=== PATIENT | male | born 1940 | race Caucasian/White ===

== ENCOUNTER 2017-11-20 23:09 | Inpatient (IN) ==
[2017-11-21] MEDS ORDERED: D5% in Water 1,000 ML IVC PRN (04:23)
[2017-11-21] MEDS ORDERED: *HR* Dextrose 50 % in Water (Syg) 50 ML SYRINGE IVP PRN (04:23)
[2017-11-21] MEDS ORDERED: Dextrose Gel 15 GM/37.5 ML TUBE PO PRN ×2 (04:23)
[2017-11-21] MEDS ORDERED: Naloxone 0.4 MG/ML INJ IVP PRN (04:23)
--- NOTE | 2017-11-21 04:38 | Internal Med History&Physical ---
Date of Encounter: 11/21/17 Time of Encounter: 04:31 Internal Medicine - H&P: HPI Chief complaint: weak; confused; UTI Admitted From: Hospital to Hospital Transfer Plans for Post Hospital Care: Home History of present illness: Mr. Banegas is a 77 year old male who presents in transfer from [facility] ER for concerns of sepsis, altered mental status, and acute kidney failure. He presented there earlier today as he was found by his friends to be very weak, confused, disoriented, and unable to care for himself. According to reports, this was a significant change compared to patient's baseline. He was therefore brought to ER for evaluation where he was found to be confused, disoriented, to have UTI, and septic. He was therefore transferred to [facility]. Upon my assessment of the patient when he arrived, he is weak, somewhat confused , and in no acute distress. He does not recall the events earlier where his friends found him. He is oriented 3 now. He denies any chest pain, palpitations, shortness of breath, cough, fevers, vomiting, diarrhea, bowel pain , or dysuria. However, he did have document fevers of [place] and has evidence of UTI. Furthermore, his blood pressure was a little bit on the lower side. Unfortunately, there are no family members present that can confirm any history. Patient is resting in bed comfortably now and denies any complaints. He is a rather poor historian but appears to be alert and oriented 3 now. Patient denies any history of kidney problems in past. He denies any ill contacts lately. He denies any recent hospitalizations. Past Med Surg Social Fam HX - Past Medical History Attestation: Yes The following information was validated with the patient. Source: patient, old records reviewed Medical history: arthritis, diabetes, GERD, thyroid disease Additional medical history: PROSTATE CANCER, [employer] [place] AND HAS BILATERAL HEARING AIDS , Psychiatric history: no psych history - Past Surgical History Surgical History: no surgical history - Social History Smoking Status: Never smoker Smokeless Tobacco Status: No Alcohol use: none Drug use: none Current living situation: Home - Independent Activity Level: Independent ambulation Recent Out of Country Travel Within the Last 8 Weeks: No - Family History Mother History Unknown: Yes Living Status: Father History Unknown: Yes Living Status: Internal Medicine - H&P: Meds Glimepiride [Amaryl] 4 mg PO DAILY 11/20/17 [History] Insulin DETEMIR [Levemir Flextouch] 100 unit SQ DAILY 11/20/17 [History] Pravastatin Sodium [Pravachol] 20 mg PO DAILY 11/20/17 [History] Thyroid,Pork [Thyroid] 30 mg PO DAILY 11/20/17 [History] metFORMIN [Glucophage] 500 mg PO BIDWM 11/20/17 [History] 3 Allergy/AdvReac Type Severity Reaction Status Date / Time No Known Allergies Allergy Verified 11/20/17 21:48 - Constitutional Constitutional: no chills, no fever(s), no night sweats - EENT Eyes: no blurry vision, no change in vision Ears: no ear pain, no tinnitus Nose, mouth and throat: no nasal congestion, no sinus pressure, no sore throat - Cardiovascular Cardiovascular ROS IM: no chest pain, no diaphoresis, no dyspnea, no dyspnea on exertion, no edema, no orthopnea, no paroxysmal nocturnal dyspnea - Respiratory Respiratory: no cough, no dyspnea, no hemoptysis, no chest congestion, no excessive phlegm production, no change in phlegm color - Gastrointestinal Gastrointestinal: no abdominal pain, no diarrhea, no hematemesis, no hematochezia, no melena, no vomiting - Genitourinary Genitourinary ROS male: no dysuria, no flank pain, no hematuria - Musculoskeletal Musculoskeletal ROS IM: no arthralgias, no back pain, no muscle weakness, no myalgias - Integumentary Integumentary IM: no rash, no jaundice - Neurological Neurological ROS: confusion, no convulsions, no dizziness, no focal weakness, no frequent falls, no headache(s), no weakness - Psychiatric Psychiatric: no anxiety, no depression - Endocrine Endocrine IM: no cold intolerance, no heat intolerance, no polydipsia, no polyuria - Allergic/Immunologic Allergic/Immunologic: no GI upset with certain foods - Constitutional Vitals: Temp Pulse Resp BP Pulse Ox 98.2 F 71 17 102/60 98 11/21/17 04:16 11/21/17 04:16 11/21/17 04:16 11/21/17 04:16 11/21/17 04:16 General appearance: Present: cooperative, A&O X 3, pleasant, no acute distress, answers questions appropriately Exam: see below - Head Head exam: Present: atraumatic, normal inspection - Eye Eye exam: Present: EOMI, PERRL. Absent: scleral icterus Pupils: Present: normal accommodation - ENT ENT exam: Present: mucous membranes dry, normal exam, normal oropharynx - Neck Neck exam general surgery: Present: full ROM, supple. Absent: tenderness, nuchal rigidity, thyromegaly - Respiratory Respiratory exam: Present: CTAB. Absent: chest wall tenderness, rales, respiratory distress, rhonchi, wheezes - Cardiovascular Cardiovascular exam: Present: RRR, +S1, +S2. Absent: diastolic murmur, systolic murmur - GI/Abdominal GI/Abdominal exam: Present: normal bowel sounds, soft. Absent: hepatomegaly, mass, splenomegaly, tenderness - Extremities Exam Extremities exam: Present: full ROM, normal capillary refill, warm, radial pulses palpable and symmetrical. Absent: calf tenderness, joint swelling, pedal edema, tenderness - Back Exam Back exam: Absent: CVA tenderness (L), CVA tenderness (R) - Neurological Exam Neurological exam: Present: alert, CN II-XII intact, oriented X3, no focal deficits - Psychiatric Psychiatric exam: Present: normal affect, normal mood - Skin Skin exam: Present: dry, intact, warm Internal Med - H&P Results - Labs Labs: I reviewed the labs from [facility] ER and include the following: WBC 9.5 Hemoglobin 12.6 Hematocrit 36.5 Platelets 104 Segmented neutrophils 68% Bands 30% Lymphocytes 2% Sodium 129 Potassium 4.0 Chloride 95 Carbon dioxide 21 BUN 41 Creatinine 2.46 - EKG Data -: EKG Interpreted by Myself - EKG Data Prior EKG available for review: no EKG comments: 11/21/17 NSR; no acute ST-T changes - Diagnostic Studies Chest x-ray Status: image reviewed by me (negative) - Assessment and plan (1) Sepsis Current Visit: Yes Status: Acute Assessment and plan: 1. Blood and urine cultures obtained at [place]. 2. Suspect urine source. 3. Continue IV Rocephin and monitor clinically as well as follow the cultures. 4. Trend lactate levels and clinical picture. Qualifiers: Sepsis type: sepsis due to unspecified organism Qualified Code(s): A41.9 - Sepsis, unspecified organism (2) Encephalopathy acute Current Visit: Yes Status: Acute Assessment and plan: 1. Likely due to UTI. 2. Patient alert and oriented now. 3. Monitor clinically with assistance from family/friends to corroborate baseline status. (3) Acute kidney failure Current Visit: Yes Status: Acute Assessment and plan: 1. Will hydrate with IVF. 2. Monitor I/O and daily weight. 3. Monitor renal function. 4. Will order renal ultrasound to rule out obstruction. 5. Consult nephrology if renal function does not improve. Qualifiers: Acute renal failure type: unspecified Qualified Code(s): N17.9 - Acute kidney failure, unspecified (4) Type 2 diabetes mellitus Current Visit: Yes Status: Chronic Assessment and plan: 1. Hold oral home meds. 2. Monitor glucose and treat with SSI for now. Qualifiers: Diabetes mellitus ferry terminal agent insulin use: without ferry terminal agent use Diabetes mellitus complication status: without complication Qualified Code(s): E11.9 - Type 2 diabetes mellitus without complications (5) UTI (urinary tract infection) Current Visit: Yes Status: Acute Assessment and plan: 1. Cultures obtained at [place]. 2. Will treat with IV Rocephin and monitor clinically. Qualifiers: Urinary tract infection type: acute cystitis Hematuria presence: without hematuria Qualified Code(s): N30.00 - Acute cystitis without hematuria (6) DVT prophylaxis Current Visit: Yes Status: Acute Assessment and plan: 1. Heparin SQ.
[2017-11-21] MEDS: 0.9 % Sodium Chloride 1,000 ML IVC SCH ×2 (04:46→14:42)
[2017-11-21 04:57] LABS: Basophils % 0.3 %; Eosinophils % 0.1 %; Hematocrit 33.7 % (37.5-50.1); Hemoglobin 11.5 g/dL (12.9-16.9); Immature Granulocytes % 0.5 % (0-4); Lymphocytes # 0.2 K/mcL (0.6-4.6); Mean Corpuscular HGB Conc 34.1 g/dL (31.6-35.5); Mean Corpuscular Hemoglobin 28.3 pg (28.0-33.3); Mean Platelet Volume 10.4 fL (9.4-12.4); Monocytes # 0.3 K/mcL (0.0-1.3); Platelet Count 106 K/mcL (140-400); Red Blood Count 4.06 M/mcL (4.19-5.50); Red Cell Distribution Width 13.2 % (11.5-14.5); Segmented Neutrophils % 94.1 %
[2017-11-21 05:05] LABS: INR 1.3; Prothrombin Time 15.1 Seconds (9.4-12.1)
[2017-11-21 05:07] LABS: Activated Partial Thrombo Time 31.5 Seconds (26.0-36.0)
[2017-11-21 05:21] LABS: Albumin 3.4 g/dL (3.5-5.7); Albumin/Globulin Ratio 1.3 (1.1-2.2); Bilirubin,Total 0.4 mg/dL (0.3-1.0); Calcium 8.4 mg/dL (8.6-10.3); Globulin 2.7 g/dL (2.4-3.5); Magnesium 1.8 mg/dL (1.6-2.6); Potassium 3.7 mEq/L (3.5-5.1); Total Protein 6.1 g/dL (6.4-8.9)
[2017-11-21] MEDS: *HR* Heparin 5,000 UNIT/ML VIAL SQ SCH ×2 (06:19→16:57)
[2017-11-21] MEDS: Insulin LISPRO 300 UNITS/3 ML VIAL SQ SCH ×4 (08:40→22:13)
--- NOTE | 2017-11-21 09:25 | Event Note ---
Date of Encounter: 11/21/17 Time of Encounter: 09:04 Patient seen and examined at bedside. Patient states history physical assessment and plan reviewed and I agree. Patient is a very pleasant 77-year-old male who presents with concerns for sepsis and altered mental status and found to be in acute renal failure with elevated troponin; was found to be febrile tachycardic and tachypnea suspected source is urine per urinalysis. Currently the patient's mental status is much improved is alert and oriented 3 and complains of being weak and tired with decreased appetite. Patient is unable to recall how he ended up on the ground remember someone trying to help him up to the couch and bring him to the emergency department. He states he could not of the neck too long because there is a lot of people available to check on him. Patient's renal function appears to be improving with IV fluids and this troponin is downtrending. Patient denies any specific complaints right now other than the fatigue and tiredness. Constitutional: No acute distress, Alert Psych: AAO x 3 HEENT: NCAT, EOMI Neck: supple, no JVD Cardio: regular rate and rhythm, +s1s2, no murmurs/rubs/gallops, no JVD Resp: clear to ascultation bilaterally, no wheezes/rales/ronchi Abd: soft, non tender/non distended, positive bowel sounds, no gaurding/reboud/ ridgitity Extremities: no clubbing/cyanosis/edema appreciated Neuro: no focal deficits appreciated, no sensory or motor deficits appreciated, cranial nerves II through XII grossly intact, no facial droop or dysarthria Severe sepsis -Suspect urinary source -End organ damage involving renal and cardiac systems -Temperature improved as his heart rate and respiratory rate -Continue IV Rocephin -Cultures appear to have been ordered but are not showing up I will repeat this -Follow urine culture -Continue IV fluid resuscitation -Bandemia of 30% Urinary tract infection -Continue IV Rocephin Elevated troponin -Likely type II and STEMI secondary to increased demand from sepsis -no cp Altered mental status -Likely secondary to sepsis -Appears to be improving the patient is now alert and oriented 3 -Unsure how the patient ended up down on the ground -Order CT scan of head -CPK also ordered -Currently do not suspect a seizure but will keep and differential should mental status worsen Acute renal failure -Likely prerenal from severe sepsis and urinary tract infection -SCr improving -Unsure of baseline but patient reports no history of renal disease -Retroperitoneal ultrasound ordered -Check FeNa and UPC Pseudohyponatremia -Associated with hyperglycemia DMII with Hyperglycemia -Resume patient's insulin regimen and sliding scale insulin coverage -On clear patient's home dose of Lantus will start 10 units daily at bedtime until verified and titrate up accordingly -monitor Accu-Cheks Thrombycotopenia -unclear baseline -possibly related to sepsis -monitor -hep sq okay for now High risk patient for complications and deterioration
[2017-11-21] MEDS: Acetaminophen 325 MG TABLET PO PRN ×2 (12:59→21:57)
[2017-11-21 15:23] LABS: Protein/Creatinine Ratio,Urine 0.87 mg/mg (0.00-0.20); Sodium, Urine 37.7 mEq/L
[2017-11-21] MEDS: Insulin DETEMIR 100 UNIT/ML X5UNITS SQ SCH (21:57)
[2017-11-21] MEDS ORDERED: cefTRIAXone 2,000 MG in Water for inj. (sterile) 20 ML 20 ML IVP SCH (22:00)
[2017-11-21] MEDS ORDERED: 0.9 % Sodium Chloride 500 ML ONE (22:48)
[2017-11-21] MEDS ORDERED: *HR* Heparin 5,000 UNIT/ML VIAL IVP PRN (22:50)
[2017-11-21] MEDS ORDERED: *HR* Heparin 5,000 UNIT/ML VIAL IVP ONE (22:50)
--- NOTE | 2017-11-21 22:54 | Event Note ---
Date of Encounter: 11/21/17 Time of Encounter: 22:53 Pt was found tachycardia with HR 140-160 on tele. EKG Afib with RVR HR 136. Started on Heparin and Cardizem gtt.
[2017-11-21] MEDS: Heparin 25,000 UNIT/500 ML D5W 25,000 UNIT/500 ML BAG IVC SCH (23:08)
[2017-11-21 23:16] LABS: Red Cell Distribution Width 13.1 % (11.5-14.5)
[2017-11-21 23:18] LABS: Hematocrit 33.1 % (37.5-50.1); Hemoglobin 11.3 g/dL (12.9-16.9); Immature Platelets 7.4 % (1.1-6.1); Mean Corpuscular HGB Conc 34.1 g/dL (31.6-35.5); Mean Corpuscular Hemoglobin 27.9 pg (28.0-33.3); Mean Corpuscular Volume 81.7 fL (83.0-100.0); Mean Platelet Volume 10.6 fL (9.4-12.4); Red Blood Count 4.05 M/mcL (4.19-5.50)
[2017-11-21 23:22] LABS: Heparin anti-factor XA UFH 0.07 IU/mL (0.30-0.70)
[2017-11-21 23:23] LABS: Prothrombin Time 11.2 Seconds (9.4-12.1)
[2017-11-22] MEDS: *HR* Heparin 5,000 UNIT/ML VIAL SQ SCH (04:57)
[2017-11-22 05:37] LABS: Eosinophils % 0.5 %; Hemoglobin 12.2 g/dL (12.9-16.9); Immature Granulocytes % 0.7 % (0-4)
[2017-11-22 05:38] LABS: Basophils % 0.5 %; Hematocrit 35.8 % (37.5-50.1); Immature Platelets 7.3 % (1.1-6.1); Lymphocytes # 0.2 K/mcL (0.6-4.6); Lymphocytes % 4.1 %; Mean Corpuscular HGB Conc 34.1 g/dL (31.6-35.5); Mean Corpuscular Volume 82.1 fL (83.0-100.0); Monocytes # 0.3 K/mcL (0.0-1.3); Monocytes % 6.6 %; Neutrophils # 3.9 K/mcL (1.6-8.9); Red Blood Count 4.36 M/mcL (4.19-5.50); Red Cell Distribution Width 13.1 % (11.5-14.5); Segmented Neutrophils % 87.6 %
[2017-11-22 05:41] LABS: Platelet Count 77 K/mcL (140-400)
[2017-11-22 05:56] LABS: Albumin 3.1 g/dL (3.5-5.7); Albumin/Globulin Ratio 1.2 (1.1-2.2); Bilirubin,Total 0.5 mg/dL (0.3-1.0); Calcium 8.5 mg/dL (8.6-10.3); Globulin 2.6 g/dL (2.4-3.5); Magnesium 1.9 mg/dL (1.6-2.6); Phosphorous 2.5 mg/dL (2.7-4.5); Potassium 3.7 mEq/L (3.5-5.1); Total Protein 5.7 g/dL (6.4-8.9)
[2017-11-22 06:25] LABS: Platelet Estimate Decreased (Normal); Toxic Granulation Present (Not Present)
--- NOTE | 2017-11-22 06:38 | Internal Med Progress Note ---
Hospitalist Progress Note - Encounter Date of Encounter: 11/22/17 Time of Encounter: 06:24 - Subjective Interval History: Patient seen and examined at bedside. Overnight the patient developed new onset atrial fibrillation rapid ventricular response. Cardizem drip and heparin drip were started the patient's heart rate is now controlled. Patient states overall he continues to feel them proved and no longer feels confused. Patient does admit to low back pain today and states that his legs feel weak and is having a hard time ambulating. Patient states that he noticed this yesterday but got up to go to the bathroom overnight and needed significant assistance. He states he normally ambulates without issue. Due patient being found on the ground with unknown etiology will obtain CT scan of lumbar spine to evaluate lower extremity weakness and lumbar pain. Patient denies any chest pain, palpitations, shortness of breath, nausea, vomiting, diarrhea. Patient was asymptomatic with his new onset atrial fibrillation overnight. - Exam Vitals: Temp Pulse Resp BP Pulse Ox 97.7 F 83 17 93/58 96 11/22/17 04:29 11/22/17 05:53 11/22/17 04:29 11/22/17 05:53 11/22/17 04:29 Exam: Constitutional: No acute distress, Alert Psych: AAO x 4 HEENT: NCAT, EOMI Neck: supple, no JVD Cardio: RRR, +s1s2, no murmurs/rubs/gallops, no JVD Resp: clear to ascultation bilaterally, no wheezes/rales/ronchi Abd: soft, non tender/non distended, positive bowel sounds, no gaurding/reboud/ ridgitity Extremities: no clubbing/cyanosis/edema appreciated Neuro: Cranial nerves II through XII grossly intact, no facial droop, moves lower extremities symmetrically with no sensory deficits; able to lift lower extremities off the bed but does seem to have decreased motor strength in proximal LE 3/5 bilaterally MSK: no focal tenderness to palpation over lumbar spine Lymph: no cervical/supraclavicular adenopahty apprecitated - Assessment and Plan (1) Severe sepsis Current Visit: Yes Status: Acute Assessment and Plan: -Suspect urinary source -End organ damage involving renal and cardiac systems -Sepsis improving -Continue IV Rocephin -Culture NGTD; will follow -Follow urine culture -Continue IV fluid resuscitation -Bandemia of 30% on admission; wbc down trending (2) New onset a-fib Current Visit: Yes Status: Acute Assessment and Plan: -Patient with new-onset atrial fibrillation overnight with rapid ventricular response -Heparin and Cardizem drip started -Patient has since converted to normal sinus rhythm -CHADSVASC of 3 -continue cardiezem gtt and start po cardizem 30mg q6 then wean gtt -continue hep gtt for now; unsure if good candidate for long-term AC due to recent fall; reports no falls prior to this however -check xarelto pricing -order 2d echocardiogram (3) UTI (urinary tract infection) Current Visit: Yes Status: Acute Assessment and Plan: -Continue Rocephin -Follow cultures (4) Lower extremity weakness Current Visit: Yes Status: Acute Assessment and Plan: -Patient now complaining of bilateral lower extremity weakness that is limiting his mobility -Also admits to low back pain which she states he is not never had before -Patient does have some lower extremity weakness on exam that is symmetrical with no sensory deficit -We will order CT of the lumbar spine to evaluate for any spinal etiology of his weakness -Also consult neurology for evaluation -PT/OT pending CT scan being negative (5) Encephalopathy acute Current Visit: Yes Status: Acute Assessment and Plan: -Likely toxic metabolic encephalopathy secondary to sepsis -Altered mental status is now resolved patient is alert and oriented 4 -However he was found down on the ground by friends and unsure how this occured -Could be syncope versus seizure versus mechanical fall -CT of the brain was negative for any acute process yesterday -Consider MRI and EEG but we will consult neurology for evaluation and recommendations (6) Acute kidney failure Current Visit: Yes Status: Acute Assessment and Plan: -Likely prerenal from severe sepsis and urinary tract infection -SCr improving to 1.48 from 2.46 on admission -Unsure of baseline but patient reports no history of renal disease -Retroperitoneal ultrasound ordered -FeNa consistent with prerenal etiology -CPK elevated but trending down; possible component of rhabdomyolysis as well (7) Type 2 diabetes mellitus Current Visit: Yes Status: Chronic Assessment and Plan: -BG improving -continue levemir with SSI coverage -up titrate as needed -monitor accuchecks (8) Fall Current Visit: Yes Status: Acute Assessment and Plan: -found on ground by friends -unsure how this happened as pt does not recall -CT head negative -Could be secondary to syncope versus seizure versus mechanical fall -Patient now admits to lower extremity weakness as well as lumbar back pain -We will obtain CT of lumbar spine -We will consult neurology for evaluation and recommendations regarding MRI and EEG (9) Elevated troponin Current Visit: Yes Status: Acute Assessment and Plan: -Likely type II and STEMI secondary to increased demand from sepsis -no cp -troponin downtrended (10) Hyponatremia Current Visit: Yes Status: Acute Assessment and Plan: -Hypovolemic hyponatremia with some component of pseudohyponatremia from hyperglycemia -Continue glycemic control and volume resuscitation -A.m. BMP (11) Thrombocytopenia Current Visit: Yes Status: Acute Assessment and Plan: -Presented with platelet count of 104K -downtrended to 77K but seems to have plauteued -unknown baseline -continue to monitor -likely 2/2 sepsis (12) DVT prophylaxis Current Visit: Yes Status: Acute Assessment and Plan: -hep gtt DVT Prophylaxis: -hep gtt - Summary of Assessment and Plan Summary of Assessment and Plan: -Patient seems to be improving from sepsis standpoint -Now complaining of lower extremity weakness with lumbar back pain we will obtain CT of the lumbar spine to evaluate -Due to unknown etiology of how the patient ended up on the ground we will consult neurology for evaluation and need for EEG and MRI and also for evaluation of LE weakness -Continue heparin drip for now and check Xarelto pricing for new onset atrial fibrillation continue to wean Cardizem drip after starting by mouth Cardizem -Reportedly patient was independent and ambulates without issue prior to this event -Patient High risk - Time Spent with Patient Total time spent is greater than 50% in coordination of care (as documented) at patient's floor/unit and/or counseling patient: Greater than 35 minutes Plan of Care Discussed with: patient Internal Medicine: Result - Labs CBC & Chem 7: 11/22/17 04:58 11/22/17 04:58 Labs: Short CBC 11/21/17 11/22/17 Range/Units 22:58 04:58 WBC 5.3 D 4.4 (4.3-11.1) K/mcL Hgb 11.3 L 12.2 L (12.9-16.9) g/dL Hct 33.1 L 35.8 L (37.5-50.1) % Plt Count 77 L 77 L (140-400) K/mcL BMP 11/22/17 04:58 Sodium 131 L Potassium 3.7 Chloride 102 Carbon Dioxide 22 L BUN 30 H Creatinine 1.48 H Glucose 183 H Calcium 8.5 L Liver Function 11/22/17 Range/Units 04:58 Total Bilirubin 0.5 (0.3-1.0) mg/dL AST 102 H (13-39) Units/L ALT 88 H (7-52) Units/L Alkaline Phosphatase 100 (34-104) Units/L Albumin 3.1 L (3.5-5.7) g/dL - ABG Interpretation ABG results: PT/INR, D-dimer PT 11.2 Seconds (9.4-12.1) 11/21/17 22:58 - Impressions Impressions Head CT 11/21/17 09:18 IMPRESSION: No acute intracranial abnormality. Diffuse atrophic changes with findings suggesting chronic microvascular ischemia D/ / Shane Cole MD / Shane Cole MD Interpreting Provider: Shane Cole MD Consult Discharge Plan - Plan Referrals: NONE,PCP [Primary Care Provider] - (3) UTI (urinary tract infection) Qualifiers: Urinary tract infection type: acute cystitis Hematuria presence: without hematuria Qualified Code(s): N30.00 - Acute cystitis without hematuria (4) Lower extremity weakness Qualifiers: Laterality: bilateral Qualified Code(s): R29.898 - Other symptoms and signs involving the musculoskeletal system (6) Acute kidney failure Qualifiers: Acute renal failure type: unspecified Qualified Code(s): N17.9 - Acute kidney failure, unspecified (7) Type 2 diabetes mellitus Qualifiers: Diabetes mellitus long-term insulin use: without salvage determiner use Diabetes mellitus complication status: without complication Qualified Code(s): E11.9 - Type 2 diabetes mellitus without complications (8) Fall Qualifiers: Encounter type: initial encounter Qualified Code(s): W19.XXXA - Unspecified fall, initial encounter
[2017-11-22 07:10] LABS: Thyroid Stimulating Hormone 5.723 mcIU/mL (0.340-5.600)
[2017-11-22] MEDS: 0.9 % Sodium Chloride 1,000 ML IVC SCH ×2 (07:37→17:20)
[2017-11-22] MEDS: Insulin LISPRO 300 UNITS/3 ML VIAL SQ SCH ×4 (08:03→21:57)
[2017-11-22] MEDS: cefTRIAXone 2,000 MG in Water for inj. (sterile) 20 ML 20 ML IVP SCH (09:07)
--- NOTE | 2017-11-22 09:56 | Neurology - Consult Note ---
<Philomena Burt N - Last Filed: 11/22/17 13:41> Date of Encounter: 11/22/17 Time of Encounter: 09:31 Assessment and Plan (1) Lower extremity weakness Current Visit: Yes Status: Acute 77 year old male admitted with AMS, weakness, and RUBIA who was found on the floor at home. At [place] ED diagnosed with UTI and transferred to [facility]. Mental status has improved since admission and patient is receiving IV antibiotics and fluids. During admission he was diagnosed with new onset afib and started on heparin and cardizem drip. Since admission patient is complaining of new onset lower extremity weakness and back pain. He also admits to decreased sensation of the lower extremities bilaterally, acute onset back pain, and reports a 2-3 month history of bowel incontinence. -Patient's new onset lower extremity weakness with associated acute lower back pain, history of bowel incontinence, and lower extremity numbness raise concern for possible spinal etiology for his symptoms. -On exam he has symmetric mild weakness of the lower extremities and reported decreased sensation to light touch. No other focal neurological findings. -It is possible that his weakness may be secondary to his current UTI, however, given his new onset back pain and history of bowel incontinence we will obtain an MRI lumbar spine to evaluate for spinal compression or cauda equina. -Patient denies regular alcohol intake, however we will obtain Vitamin B12 level to evaluate for possible deficiency -Patient has new onset afib as well, given that he was found unresponsive at home and has lower exremity weakness following the event we will obtain MRI head as well. However, an embolic etiology for the patient's symptoms is unlikely as his symptoms are symmetric bilaterally and there are no unilateral focal neurological deficits on exam. Qualifiers: Laterality: bilateral Qualified Code(s): R29.898 - Other symptoms and signs involving the musculoskeletal system (2) Altered mental status Current Visit: No Status: Acute -Likely secondary to toxic metabolic encephalopathy secondary to patient's UTI -Mental status has improved and patient is alert and oriented X 3 today, although can not recall the events surrounding his ED visit and admission -CT brain negative on admission -No seizure activity reported, no known history of seizures -New onset afib discovered during hospitalization -Will obtain MRI head to evaluate for an embolic etiology for patient's acute change in mental status, but suspect that these symptoms are more likely secondary to his current illness. -No concerning findings at this time for seizure activity to warrant an EEG. Qualifiers: Altered mental status type: disorientation Qualified Code(s): R41.0 - Disorientation, unspecified History of Present Illness Chief complaint: Lower extremity weakness, backpain HPI: Mr. Banegas is a 77 year old male who was found on the floor at home confused, weak, and altered. He was transported to [place] ED where he was found to have UTI with sepsis, RUBIA, and altered mental status. He was subsequently transferred to [facility] for further care. His mental status on admission had improved and he was A& OX3, however he complained of new onset lower extremity weakness and back pain. He was started on IV rocephin and IV fluid hydration. Overnight he experienced an elevated heart rate of 140-160 and EKG showed afib with RVR. He was started on heparin and cardizem drip. This morning the patient was seen at bedside. He is alert and awake and denies any confusion, although he can not recall the events surrounding his ED visit and subsequent admission. He does report weakness in his lower extremities. Stating that he can move the lower extremities, however he is unable to support his weight if he tries to walk. Before the current admission the patient was able to ambulate with a cane without difficulty. He states this is acute and has not happened before. He states both legs feel weak equally. He admits to occasional difficulty with balance, but it is mild. He admits to decreased sensation in the legs as well, stating at times they feel "numb". He denies any urinary incontinence, but reports 2-3 month history of bowel incontinence where he complains of postprandial loss of bowels if he can't make it to a bathroom in time. He denies any saddle anesthesia. He denies headaches, confusion, vision changes, hearing changes, changes in speech, facial sensory or motor changes, or any symptoms regarding his upper extremities. He also denies any chest pain, palpitations, current SOB, or any drug, alcohol or tobacco use. 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 , Psychiatric history: no psych history - Past Surgical History Surgical History: no surgical history - Social History Smoking Status: Never smoker Smokeless Tobacco Status: No Alcohol use: none Drug use: none - Family History Mother History Unknown: Yes Living Status: Father History Unknown: Yes Living Status: Medications and Allergies Glimepiride [Amaryl] 4 mg PO DAILY 11/20/17 [History] Insulin DETEMIR [Levemir Flextouch] 15 unit SQ DAILY 11/20/17 [History] Pravastatin Sodium [Pravachol] 20 mg PO DAILY 11/20/17 [History] Thyroid,Pork [Thyroid] 30 mg PO DAILY 11/20/17 [History] metFORMIN [Glucophage] 500 mg PO BIDWM 11/20/17 [History] Metformin HCl [Metformin HCl ER] 1,000 mg PO QPM 11/22/17 [History] Metformin HCl [Metformin HCl ER] 500 mg PO QAM 11/22/17 [History] 3 Allergy/AdvReac Type Severity Reaction Status Date / Time No Known Allergies Allergy Verified 11/20/17 21:48 All Systems: The remainder of the systems were reviewed and are negative - Constitutional Constitutional ROS IM: as per HPI Physical Examination - Vital Signs Vital Signs: Initial Vital Signs Temp Pulse Resp BP Pulse Ox 99.1 F 86 17 100/67 100 11/21/17 00:51 11/21/17 00:51 11/21/17 00:51 11/21/17 00:51 11/21/17 00:51 - Exam Exam: Constitutional: Alert and oriented X 3, no acute distress, fluent speech, appropriate thought process Heart: regular rate and rhythm, patient is on diltiazem for new onset afib. no murmurs. Lungs: clear to auscultation bilaterally Abdomen: soft, nontender, positive bowel sounds Neurological: CN: II-XII grossly intact. No focal neurological deficits of the cranial nerves. Upper extremities: sensation intact to light touch. Motor strength is 5/5 bilaterally throughout. No pronator drift. Finger to nose normal. biceps reflex 1+ bilaterally. Lower extremities: mildly diminished sensation to light touch of the lower extremities below the knee on the medial and lateral aspect. Sensation is equal to light touch bilaterally however. Strength is 4/5 bilaterally and symmetric, patient is able to elevate leg off bed for greater than 5 seconds, but is only able to move leg against some resistance, but not full resistance. Heel to rice normal. Patellar reflexes are 1+ bilaterally, unable to elicit achilles reflex. Results - Laboratory Findings CBC and BMP: 11/22/17 04:58 11/22/17 04:58 Abnormal lab findings: Abnormal lab results Hgb 12.2 g/dL (12.9-16.9) L 11/22/17 04:58 Hct 35.8 % (37.5-50.1) L 11/22/17 04:58 MCV 82.1 fL (83.0-100.0) L 11/22/17 04:58 Plt Count 77 K/mcL (140-400) L 11/22/17 04:58 Lymphocytes # 0.2 K/mcL (0.6-4.6) L 11/22/17 04:58 Toxic Granulation Present (Not Present) A 11/22/17 04:58 Platelet Estimate Decreased (Normal) L 11/22/17 04:58 Immature Plt Fraction 7.3 % (1.1-6.1) H 11/22/17 04:58 Heparin Anti-Xa, Unfract 0.08 IU/mL (0.30-0.70) L 11/22/17 04:58 Sodium 131 mEq/L (136-145) L 11/22/17 04:58 Carbon Dioxide 22 mEq/L (23-29) L 11/22/17 04:58 BUN 30 mg/dL (8-23) H 11/22/17 04:58 Creatinine 1.48 mg/dL (0.70-1.30) H 11/22/17 04:58 Est GFR ( Amer) 56 (> 60) L 11/22/17 04:58 Est GFR (Non-Af Amer) 46 (> 60) L 11/22/17 04:58 Glucose 183 mg/dL (70-105) H 11/22/17 04:58 POC Glucose 165 mg/dL (70-99) H 11/21/17 20:21 Calcium 8.5 mg/dL (8.6-10.3) L 11/22/17 04:58 Phosphorus 2.5 mg/dL (2.7-4.5) L 11/22/17 04:58 AST 102 Units/L (13-39) H 11/22/17 04:58 ALT 88 Units/L (7-52) H 11/22/17 04:58 Creatine Kinase 344 Units/L (30-223) H 11/22/17 04:58 Troponin I 0.05 ng/mL (< 0.04) H* 11/21/17 04:45 Serum Total Protein 5.7 g/dL (6.4-8.9) L 11/22/17 04:58 Albumin 3.1 g/dL (3.5-5.7) L 11/22/17 04:58 TSH 5.723 mcIU/mL (0.340-5.600) H 11/22/17 04:58 Protein/Creatinin Ratio 0.87 mg/mg (0.00-0.20) H 11/21/17 14:45 Urine Total Protein 90 mg/dL (1-14) H 11/21/17 14:45 Consult Discharge Plan - Plan Referrals: NONE,PCP [Primary Care Provider] - <Shane Paze - Last Filed: 11/22/17 15:45> Date of Encounter: 11/22/17 Time of Encounter: 15:35 Assessment and Plan (1) Lower extremity weakness Current Visit: Yes Status: Acute I agree with Dr. Burt's assessment as stated above. I believe that the lower extremity weakness is primarily due to either lumbar radiculopathy, lumbar stenosis, or perhaps mechanical etiologies. I find no evidence to suspect an inflammatory neuropathy such as GBS. MRI scan of the head as well as lumbar spine are yet pending. Further recommendations will be made upon assessment of these results. Qualifiers: Laterality: bilateral Qualified Code(s): R29.898 - Other symptoms and signs involving the musculoskeletal system History of Present Illness HPI: The chart was reviewed, the patient was seen and examined along with the resident. I agree with his assessment as stated above. He denies urinary incontinence, he denies saddle anesthesia, denies pain in the perineum. He has acute back pain. All Systems: The remainder of the systems were reviewed and are negative Review of Systems: The balance of the systems review is negative. Physical Examination - Vital Signs Vital Signs: Initial Vital Signs Temp Pulse Resp BP Pulse Ox 99.1 F 86 17 100/67 100 11/21/17 00:51 11/21/17 00:51 11/21/17 00:51 11/21/17 00:51 11/21/17 00:51 - Exam Exam: The patient was examined independently along with the resident present. I agree with the documentation as stated above. - Neurologic Detailed sensory examination: intact Mental Status Examination: awake, alert, oriented to person, oriented to place, oriented to time, follows commands appropriately, answers questions appropriately, no agnosia, no aphasia Cranial nerve examination: PERRL, EOMI, visual mae intact, corneal reflexes brisk symmetrically, sensory to face intact, mastication intact, no facial asymmetry is present, no dysarthria, hearing is intact symmetrically, soft palate elevates bilaterally upon phonation, gag reflex intact, flexes SCM and trapezius muscles symmetrically with full power, tongue protrudes midline, no atrophy or facial fasiculations present Results - Laboratory Findings CBC and BMP: 11/22/17 04:58 11/22/17 04:58 Abnormal lab findings: Abnormal lab results Hgb 12.2 g/dL (12.9-16.9) L 11/22/17 04:58 Hct 35.8 % (37.5-50.1) L 11/22/17 04:58 MCV 82.1 fL (83.0-100.0) L 11/22/17 04:58 Plt Count 77 K/mcL (140-400) L 11/22/17 04:58 Lymphocytes # 0.2 K/mcL (0.6-4.6) L 11/22/17 04:58 Toxic Granulation Present (Not Present) A 11/22/17 04:58 Platelet Estimate Decreased (Normal) L 11/22/17 04:58 Immature Plt Fraction 7.3 % (1.1-6.1) H 11/22/17 04:58 Heparin Anti-Xa, Unfract 0.27 IU/mL (0.30-0.70) L 11/22/17 12:33 Sodium 131 mEq/L (136-145) L 11/22/17 04:58 Carbon Dioxide 22 mEq/L (23-29) L 11/22/17 04:58 BUN 30 mg/dL (8-23) H 11/22/17 04:58 Creatinine 1.48 mg/dL (0.70-1.30) H 11/22/17 04:58 Est GFR ( Amer) 56 (> 60) L 11/22/17 04:58 Est GFR (Non-Af Amer) 46 (> 60) L 11/22/17 04:58 Glucose 183 mg/dL (70-105) H 11/22/17 04:58 POC Glucose 165 mg/dL (70-99) H 11/21/17 20:21 Calcium 8.5 mg/dL (8.6-10.3) L 11/22/17 04:58 Phosphorus 2.5 mg/dL (2.7-4.5) L 11/22/17 04:58 AST 102 Units/L (13-39) H 11/22/17 04:58 ALT 88 Units/L (7-52) H 11/22/17 04:58 Creatine Kinase 344 Units/L (30-223) H 11/22/17 04:58 Troponin I 0.05 ng/mL (< 0.04) H* 11/21/17 04:45 Serum Total Protein 5.7 g/dL (6.4-8.9) L 11/22/17 04:58 Albumin 3.1 g/dL (3.5-5.7) L 11/22/17 04:58 TSH 5.723 mcIU/mL (0.340-5.600) H 11/22/17 04:58 Protein/Creatinin Ratio 0.87 mg/mg (0.00-0.20) H 11/21/17 14:45 Urine Total Protein 90 mg/dL (1-14) H 11/21/17 14:45
[2017-11-22] MEDS: *HR* Heparin 5,000 UNIT/ML VIAL IVP PRN (14:31)
[2017-11-22] MEDS: Heparin 25,000 UNIT/500 ML D5W 25,000 UNIT/500 ML BAG IVC SCH (18:18)
[2017-11-22] MEDS: Insulin DETEMIR 100 UNIT/ML X5UNITS SQ SCH (21:58)
[2017-11-23 04:40] LABS: Eosinophils % 1.9 %; Red Cell Distribution Width 13.2 % (11.5-14.5)
[2017-11-23 04:42] LABS: Basophils % 0.6 %; Eosinophils # 0.1 K/mcL (0.0-0.6); Hematocrit 32.2 % (37.5-50.1); Hemoglobin 11.1 g/dL (12.9-16.9); Immature Granulocytes % 0.2 % (0-4); Immature Platelets 8.1 % (1.1-6.1); Lymphocytes # 0.3 K/mcL (0.6-4.6); Lymphocytes % 7.2 %; Mean Corpuscular HGB Conc 34.5 g/dL (31.6-35.5); Mean Corpuscular Hemoglobin 28.3 pg (28.0-33.3); Mean Corpuscular Volume 82.1 fL (83.0-100.0); Mean Platelet Volume 11.2 fL (9.4-12.4); Monocytes # 0.4 K/mcL (0.0-1.3); Monocytes % 8.9 %; Neutrophils # 3.8 K/mcL (1.6-8.9); Red Blood Count 3.92 M/mcL (4.19-5.50); Segmented Neutrophils % 81.2 %
[2017-11-23 04:43] LABS: Platelet Count 73 K/mcL (140-400)
[2017-11-23 05:00] LABS: BUN/Creatinine Ratio 19 (6-26); Blood Urea Nitrogen 24 mg/dL (8-23); Calcium 8.2 mg/dL (8.6-10.3); Carbon Dioxide 22 mEq/L (23-29); Chloride 103 mEq/L (98-107); Creatine Kinase 285 Units/L (30-223); Glucose 183 mg/dL (70-105); Magnesium 1.8 mg/dL (1.6-2.6); Osmolality,Calculated 285 (280-300); Phosphorous 2.8 mg/dL (2.7-4.5); Potassium 3.7 mEq/L (3.5-5.1); Sodium 133 mEq/L (136-145); eGFR For Non-African Americans 55 (> 60)
[2017-11-23 05:01] LABS: Bilirubin,Direct 0.1 mg/dL (0.0-0.2); Bilirubin,Total 0.3 mg/dL (0.3-1.0)
[2017-11-23 05:02] LABS: Albumin 2.8 g/dL (3.5-5.7); Albumin/Globulin Ratio 1.1 (1.1-2.2); Bilirubin,Indirect 0.2 mg/dL (0.0-1.2); Globulin 2.6 g/dL (2.4-3.5); Total Protein 5.4 g/dL (6.4-8.9)
[2017-11-23] MEDS: *HR* Heparin 5,000 UNIT/ML VIAL IVP PRN (06:42)
[2017-11-23] MEDS: cefTRIAXone 2,000 MG in Water for inj. (sterile) 20 ML 20 ML IVP SCH (08:47)
[2017-11-23] MEDS: Insulin LISPRO 300 UNITS/3 ML VIAL SQ SCH ×4 (08:48→22:03)
--- NOTE | 2017-11-23 11:12 | Neurology Progress Note ---
<Philomena Burt N - Last Filed: 11/23/17 11:55> Date of Encounter: 11/23/17 Time of Encounter: 11:11 Assessment and Plan (1) Lower extremity weakness Current Visit: Yes Status: Acute -Patient states that his weakness has somewhat improved, and was able to support his weight when he got out of bed earlier -MRI lumbar spine revealed severe right and moderate left neural foraminal narrowing at L5-S1 secondary to disc bulge -The foraminal narrowing may explain the patient's current symptoms and physical exam findings, further work up with an EMG is warranted. This may be done as an outpatient. -Per neurological standpoint patient is okay for discharge with 300mg gabapentin TID and steroid taper -outpatient neurology follow up after discharge Qualifiers: Laterality: bilateral Qualified Code(s): R29.898 - Other symptoms and signs involving the musculoskeletal system (2) Altered mental status Current Visit: No Status: Acute -likely secondary to toxic metabolic encephalopathy secondary to current illness -improved, no confusion currently present -MRI head negative for any acute abnormality Qualifiers: Altered mental status type: disorientation Qualified Code(s): R41.0 - Disorientation, unspecified Subjective Principal diagnosis: lower extremity weakness Interval history: Patient seen and examined at bedside this morning. He states that he feels improved overall. He is not confused and states that his strength feels subjectively improved as he was able to stand out of bed earlier today. Denies any new focal neurological deficit. MRI head did not reveal any acute abnormalities. MRI lumbar spine revealed severe right and moderate left neral foraminal narrowing at L5-S1 secondary to a disc bulge. Objective - Constitutional Vitals: Temp Pulse Resp BP Pulse Ox 99.3 F 71 16 107/61 97 11/23/17 07:09 11/23/17 07:09 11/23/17 07:09 11/23/17 07:09 11/23/17 07:09 Exam: Neurological: CN: II-XII grossly intact. Upper extremities: Sensation intact, can move all extremities Lower extremities: Able to move both lower extremities on command, strength 4/5 bilaterally. - Neurological Exam Sensation intact: Present: intact Mental Status Examination: Present: awake, alert, oriented to person, oriented to place, oriented to time, follows commands appropriately, answers questions appropriately, no agnosia, no aphasia Cranial nerve examination: Present: PERRL, EOMI, visual mae intact, corneal reflexes brisk symmetrically, sensory to face intact, mastication intact, no facial asymmetry is present, no dysarthria, hearing is intact symmetrically, soft palate elevates bilaterally upon phonation, gag reflex intact, flexes SCM and trapezius muscles symmetrically with full power, tongue protrudes midline, no atrophy or facial fasiculations present Results - Laboratory Findings CBC and BMP: 11/23/17 04:20 11/23/17 04:20 Abnormal lab findings: Abnormal lab results RBC 3.92 M/mcL (4.19-5.50) L 11/23/17 04:20 Hgb 11.1 g/dL (12.9-16.9) L 11/23/17 04:20 Hct 32.2 % (37.5-50.1) L 11/23/17 04:20 MCV 82.1 fL (83.0-100.0) L 11/23/17 04:20 Plt Count 73 K/mcL (140-400) L 11/23/17 04:20 Lymphocytes # 0.3 K/mcL (0.6-4.6) L 11/23/17 04:20 Toxic Granulation Present (Not Present) A 11/22/17 04:58 Platelet Estimate Decreased (Normal) L 11/22/17 04:58 Immature Plt Fraction 8.1 % (1.1-6.1) H 11/23/17 04:20 Heparin Anti-Xa, Unfract 0.25 IU/mL (0.30-0.70) L 11/23/17 04:20 Sodium 133 mEq/L (136-145) L 11/23/17 04:20 Carbon Dioxide 22 mEq/L (23-29) L 11/23/17 04:20 BUN 24 mg/dL (8-23) H 11/23/17 04:20 Est GFR (Non-Af Amer) 55 (> 60) L 11/23/17 04:20 Glucose 183 mg/dL (70-105) H 11/23/17 04:20 POC Glucose 193 mg/dL (70-99) H 11/22/17 21:37 Calcium 8.2 mg/dL (8.6-10.3) L 11/23/17 04:20 AST 60 Units/L (13-39) H 11/23/17 04:20 ALT 82 Units/L (7-52) H 11/23/17 04:20 Creatine Kinase 285 Units/L (30-223) H 11/23/17 04:20 Troponin I 0.05 ng/mL (< 0.04) H* 11/21/17 04:45 Serum Total Protein 5.4 g/dL (6.4-8.9) L 11/23/17 04:20 Albumin 2.8 g/dL (3.5-5.7) L 11/23/17 04:20 TSH 5.723 mcIU/mL (0.340-5.600) H 11/22/17 04:58 Protein/Creatinin Ratio 0.87 mg/mg (0.00-0.20) H 11/21/17 14:45 Urine Total Protein 90 mg/dL (1-14) H 11/21/17 14:45 Consult Discharge Plan - Plan Referrals: NONE,PCP [Primary Care Provider] - <Shane Paez - Last Filed: 11/23/17 15:36> Date of Encounter: 11/23/17 Time of Encounter: 15:27 Assessment and Plan (1) Lower extremity weakness Current Visit: Yes Status: Acute As above. I believe that a short stay at an extended care facility would be best for this patient. This is particularly true since he lives home alone. And he remains at risk for falls. At some point I would like to obtain an EMG as an outpatient to further clarify and corroborate clinical exam, MRI findings and EMG study. Vitamin B12 was normal. I would also recommend discharging him on a steroid taper and gabapentin 300 mg 3 times a day as stated above. We will reevaluate him at your request. Qualifiers: Laterality: bilateral Qualified Code(s): R29.898 - Other symptoms and signs involving the musculoskeletal system Subjective Interval history: The chart was reviewed, the patient was seen and examined independently. The case however was discussed with the resident. I agree with his assessment as stated above. The patient does feel overall, improved. He has been able to integrate about the room however he does not feel completely back to baseline. I did review the MRI scans of the lumbar spine as well as the brain. He does have significant changes at the L4-L5, and L5-S1 levels which are very likely contributing to his lower extremity weakness. Although his mental status and weakness are improved, he lives alone I am concerned about him returning home alone. Objective - Constitutional Vitals: Temp Pulse Resp BP Pulse Ox 98.4 F 74 16 118/79 97 11/23/17 11:14 11/23/17 11:14 11/23/17 11:14 11/23/17 11:14 11/23/17 11:14 - Neurological Exam Motor examination - right side: 4/5: hip flexors, tibialis Anterior, quadriceps , toe extension (EHL), plantarflexion, 5/5: deltoids, biceps, triceps, arts and sciences dean Motor examination - left side: 4/5: hip flexors, quadriceps, tibialis Anterior, toe extension (EHL), plantarflexion, 5/5: deltoids, biceps, triceps, arts and sciences dean Cerebellar examination: Present: no dysmetria, performs finger to nose and heel to rice symmetrically without ataxia. Absent: no gait ataxia (Gait is stable with assist.) Results - Laboratory Findings CBC and BMP: 11/23/17 04:20 11/23/17 04:20 Abnormal lab findings: Abnormal lab results RBC 3.92 M/mcL (4.19-5.50) L 11/23/17 04:20 Hgb 11.1 g/dL (12.9-16.9) L 11/23/17 04:20 Hct 32.2 % (37.5-50.1) L 11/23/17 04:20 MCV 82.1 fL (83.0-100.0) L 11/23/17 04:20 Plt Count 73 K/mcL (140-400) L 11/23/17 04:20 Lymphocytes # 0.3 K/mcL (0.6-4.6) L 11/23/17 04:20 Toxic Granulation Present (Not Present) A 11/22/17 04:58 Platelet Estimate Decreased (Normal) L 11/22/17 04:58 Immature Plt Fraction 8.1 % (1.1-6.1) H 11/23/17 04:20 Sodium 133 mEq/L (136-145) L 11/23/17 04:20 Carbon Dioxide 22 mEq/L (23-29) L 11/23/17 04:20 BUN 24 mg/dL (8-23) H 11/23/17 04:20 Est GFR (Non-Af Amer) 55 (> 60) L 11/23/17 04:20 Glucose 183 mg/dL (70-105) H 11/23/17 04:20 POC Glucose 173 mg/dL (70-99) H 11/23/17 11:33 Calcium 8.2 mg/dL (8.6-10.3) L 11/23/17 04:20 AST 60 Units/L (13-39) H 11/23/17 04:20 ALT 82 Units/L (7-52) H 11/23/17 04:20 Creatine Kinase 285 Units/L (30-223) H 11/23/17 04:20 Troponin I 0.05 ng/mL (< 0.04) H* 11/21/17 04:45 Serum Total Protein 5.4 g/dL (6.4-8.9) L 11/23/17 04:20 Albumin 2.8 g/dL (3.5-5.7) L 11/23/17 04:20 TSH 5.723 mcIU/mL (0.340-5.600) H 11/22/17 04:58 Protein/Creatinin Ratio 0.87 mg/mg (0.00-0.20) H 11/21/17 14:45 Urine Total Protein 90 mg/dL (1-14) H 11/21/17 14:45
[2017-11-23] MEDS: Heparin 25,000 UNIT/500 ML D5W 25,000 UNIT/500 ML BAG IVC SCH (11:20)
--- NOTE | 2017-11-23 18:26 | Electrocardiograph Report ---
[place] [id number] Test Date: 2017-11-21 Pat Name: Axel Banegas Department: 109 Room: 2A Gender: M [employer]: : 1940 Requested By: Blue Rodriguez Order Number: [id number] Reading MD: Arnulfo Hall Measurements Intervals [place] Rate: 136 P: MA: 0 QRS: 6 QRSD: 100 T: -6 QT: 304 QTc: 384 Interpretive Statements ATRIAL FIBRILLATION WITH RAPID VENTRICULAR RESPONSE NONSPECIFIC ST & T-WAVE ABNORMALITY Electronically Signed On 11-23-2017 18:24:34 EDT by Arnulfo Hall
--- NOTE | 2017-11-23 20:06 | Internal Med Progress Note ---
Hospitalist Progress Note - Encounter Date of Encounter: 11/23/17 Time of Encounter: 19:00 - Subjective Interval History: SUBJECTIVE: The patient feels better. He has regained most of his strength in lower extremities. He can walk with minimal assistance. He was able to stand up for me without any help. Denies chest pain. Denies difficulty breathing, coughing and wheezing. He has normal bowel movements and urination. He has not felt any dizziness or lightheadedness, as well as palpitation recently. OBJECTIVE: Skin: Free of rash and discoloration. ENMT: Oral/pharyngeal mucosa is normal in appearance. Eyes: Sclera is white. There is no discharge from eyes. Respiratory: Normal breath sounds; no crackles or wheezes. CV: Heart is regular; no gallop or murmur. GI: Abdomen is soft and not tender. There is no palpable mass or visceromegaly. Neuro: There is no focal deficits. See neuro exam by neurology. ASSESSMENT AND PLAN: Urinary tract infection. The encephalopathy observed at admission (as well as sepsis/RUBIA) resolved. We will continue IV Rocephin (or equivalent) per total of 2 weeks. His blood culture is normal on 2 occasions. I am going to repeat his UA tomorrow. Bilateral lower extremity weakness. 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 It is better. See notes from urology. The patient will benefit from outpatient EMG. He will definitely benefit from physical therapy in ECF. Paroxysmal atrial fibrillation. It was relatively short lasting. He is not the best candidate for anticoagulation due to his severe lumbar spine disease/ potential for falls. Additionally, he has chronic thrombocytopenia. I will stop his IV heparin drip. Type 2 diabetes mellitus. He was on Amaryl and metformin as well as Levemir at home. Currently he takes Levemir and when necessary Humalog. Thrombocytopenia. Chronic/stable. DISPOSITION: We will refer him to F. - Exam Vitals: Temp Pulse Resp BP Pulse Ox 97.7 F 77 17 101/69 97 11/23/17 18:53 11/23/17 18:53 11/23/17 18:53 11/23/17 18:53 11/23/17 18:53 Exam: XX - Assessment and Plan (1) UTI (urinary tract infection) Current Visit: Yes Status: Acute (2) Lower extremity weakness Current Visit: Yes Status: Acute (3) PAF (paroxysmal atrial fibrillation) Current Visit: Yes Status: Acute (4) Severe sepsis Current Visit: Yes Status: Resolved (5) Acute kidney failure Current Visit: Yes Status: Resolved (6) Type 2 diabetes mellitus Current Visit: Yes Status: Chronic (7) Thrombocytopenia Current Visit: Yes Status: Chronic - Time Spent with Patient Total time spent is greater than 50% in coordination of care (as documented) at patient's floor/unit and/or counseling patient: 25 - 35 minutes Plan of Care Discussed with: patient (AND SENIOR COURTROOM CLERK..) Internal Medicine: Result - Labs CBC & Chem 7: 11/23/17 04:20 11/23/17 04:20 Labs: Short CBC 11/23/17 Range/Units 04:20 WBC 4.7 (4.3-11.1) K/mcL Hgb 11.1 L (12.9-16.9) g/dL Hct 32.2 L (37.5-50.1) % Plt Count 73 L (140-400) K/mcL Neutrophils # 3.8 (1.6-8.9) K/mcL BMP 11/23/17 04:20 Sodium 133 L Potassium 3.7 Chloride 103 Carbon Dioxide 22 L BUN 24 H Creatinine 1.27 Glucose 183 H Calcium 8.2 L Liver Function 11/23/17 Range/Units 04:20 Total Bilirubin 0.3 (0.3-1.0) mg/dL Direct Bilirubin 0.1 (0.0-0.2) mg/dL AST 60 H (13-39) Units/L ALT 82 H (7-52) Units/L Alkaline Phosphatase 95 (34-104) Units/L Albumin 2.8 L (3.5-5.7) g/dL - ABG Interpretation ABG results: PT/INR, D-dimer PT 11.2 Seconds (9.4-12.1) 11/21/17 22:58 - Impressions Impressions Retroperitoneum Ultrasound 11/22/17 23:00 IMPRESSION: Right renal pelviectasis. Correlation for obstructive uropathy is recommended. Enlarged prostate gland. D/ / Catherine Patel Cha, MD / Catherine Patel Cha, MD Interpreting Provider: Catherine Patel Cha, MD Brain MRI 11/23/17 08:25 IMPRESSION: 1. No acute infarct, intracranial hemorrhage, significant mass effect. 2. Mild amount of chronic small vessel ischemic white matter disease and diffuse cerebral volume loss. D/ / Rob De Leon MD / Rob De Leon MD Interpreting Provider: Rob De Leon MD Lumbar Spine MRI 11/23/17 08:25 IMPRESSION: 1. Multilevel degenerative changes of the lumbar spine, as described above. 2. Mild spinal canal stenosis, moderate right and mild left neural foraminal narrowing at L4-5 secondary to a disc bulge, facet arthropathy and thickening of the ligamentum flavum. 3. Mild spinal canal stenosis, moderate left and mild right neural foraminal narrowing at L3-4, as described above. 4. Severe right and moderate left neural foraminal narrowing at L5-S1 secondary to a disc bulge, posterior osteophyte formation and facet arthropathy. D/ / 11/23/2017 11:34:20 Doc Anguiano MD / diana Interpreting Provider: Doc Anguaino MD Consult Discharge Plan - Plan Referrals: NONE,PCP [Primary Care Provider] - (1) UTI (urinary tract infection) Qualifiers: Urinary tract infection type: acute cystitis Hematuria presence: without hematuria Qualified Code(s): N30.00 - Acute cystitis without hematuria (2) Lower extremity weakness Qualifiers: Laterality: bilateral Qualified Code(s): R29.898 - Other symptoms and signs involving the musculoskeletal system (5) Acute kidney failure Qualifiers: Acute renal failure type: unspecified Qualified Code(s): N17.9 - Acute kidney failure, unspecified (6) Type 2 diabetes mellitus Qualifiers: Diabetes mellitus intermediate insulin use: without intermediate use Diabetes mellitus complication status: without complication Qualified Code(s): E11.9 - Type 2 diabetes mellitus without complications
[2017-11-23] MEDS: Insulin DETEMIR 100 UNIT/ML X5UNITS SQ SCH (22:09)
[2017-11-24] MEDS: Insulin LISPRO 300 UNITS/3 ML VIAL SQ SCH ×4 (08:45→21:17)
[2017-11-24] MEDS: cefTRIAXone 2,000 MG in Water for inj. (sterile) 20 ML 20 ML IVP SCH (08:47)
[2017-11-24] MEDS: Thyroid (Amour) 30 MG TABLET PO SCH (08:47)
--- NOTE | 2017-11-24 16:11 | Internal Med Progress Note ---
Hospitalist Progress Note - Encounter Date of Encounter: 11/24/17 Time of Encounter: 16:08 - Subjective Interval History: SUBJECTIVE: The patient continues to have mild weakness in his lower extremities. He does walking with assistance/walker. He denies urinary symptoms. Denies chest pain and difficulty breathing. Denies dizziness/lightheadedness and palpitation. OBJECTIVE: Skin: Free of rash and discoloration. ENMT: Oral/pharyngeal mucosa is normal in appearance. Eyes: Sclera is white. There is no discharge from eyes. Respiratory: Normal breath sounds; no crackles or wheezes. CV: Heart is regular; no gallop or murmur. GI: Abdomen is soft and not tender. There is no palpable mass or visceromegaly. Neuro: There is no focal deficits. See neuro exam by neurology. ASSESSMENT AND PLAN: Urinary tract infection. The encephalopathy observed at admission (as well as sepsis/RUBIA) resolved. We will continue IV Rocephin (or equivalent) per total of 2 weeks. His blood culture is normal on 2 occasions. I am repeating his UA today. Bilateral lower extremity weakness. 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 Getting better. See notes from neurology. The patient will benefit from outpatient EMG. He will definitely benefit from physical therapy in ECF. Paroxysmal atrial fibrillation. It was relatively short lasting. He is not the best candidate for anticoagulation due to his severe lumbar spine disease/ potential for falls. Additionally, he has chronic thrombocytopenia. I stopped his IV heparin drip. Type 2 diabetes mellitus. He was on Amaryl and metformin as well as Levemir at home. Currently, he takes Levemir and when necessary Humalog. Thrombocytopenia. Chronic/stable. DISPOSITION: We are hoping to get an ECF bed tomorrow. - Exam Vitals: Temp Pulse Resp BP Pulse Ox 99.0 F 75 16 129/77 95 11/24/17 10:20 11/24/17 10:20 11/24/17 10:20 11/24/17 10:20 11/24/17 10:20 Exam: xx - Assessment and Plan (1) UTI (urinary tract infection) Current Visit: Yes Status: Acute (2) Lower extremity weakness Current Visit: Yes Status: Acute (3) PAF (paroxysmal atrial fibrillation) Current Visit: Yes Status: Acute (4) Severe sepsis Current Visit: Yes Status: Resolved (5) Acute kidney failure Current Visit: Yes Status: Resolved (6) Type 2 diabetes mellitus Current Visit: Yes Status: Chronic (7) Thrombocytopenia Current Visit: Yes Status: Chronic - Time Spent with Patient Total time spent is greater than 50% in coordination of care (as documented) at patient's floor/unit and/or counseling patient: 25 - 35 minutes Plan of Care Discussed with: patient (and case management social worker..) Internal Medicine: Result - Labs CBC & Chem 7: 11/23/17 04:20 11/23/17 04:20 - ABG Interpretation ABG results: PT/INR, D-dimer PT 11.2 Seconds (9.4-12.1) 11/21/17 22:58 Consult Discharge Plan - Plan Referrals: NONE,PCP [Primary Care Provider] - (1) UTI (urinary tract infection) Qualifiers: Urinary tract infection type: acute cystitis Hematuria presence: without hematuria Qualified Code(s): N30.00 - Acute cystitis without hematuria (2) Lower extremity weakness Qualifiers: Laterality: bilateral Qualified Code(s): R29.898 - Other symptoms and signs involving the musculoskeletal system (5) Acute kidney failure Qualifiers: Acute renal failure type: unspecified Qualified Code(s): N17.9 - Acute kidney failure, unspecified (6) Type 2 diabetes mellitus Qualifiers: Diabetes mellitus medical terminologist insulin use: without medical terminologist use Diabetes mellitus complication status: without complication Qualified Code(s): E11.9 - Type 2 diabetes mellitus without complications
[2017-11-24] MEDS: Insulin DETEMIR 100 UNIT/ML X5UNITS SQ SCH (21:16)
[2017-11-25 00:32] LABS: Bilirubin,Urine Negative (Negative); Blood,Urine Negative (Negative); Clarity,Urine Clear (Clear); Color,Urine Yellow (Yellow); Glucose,Urine (UA) 500 mg/dL (Normal); Ketones,Urine Negative (Negative); Leukocyte Esterase,Urine Negative (Negative); Nitrite,Urine Negative (Negative); PH,Urine 5.5 pH Units (5.0-8.0); Protein,Urine Trace mg/dL (Neg-Trace); Specific Gravity,Urine 1.023 (1.010-1.025); Urobilinogen,Urine Normal (Normal)
[2017-11-25 00:37] LABS: Bacteria,Urine None Seen per hpf (None-Few); Hyaline Casts,Urine None Seen per lpf (None-Few); Squamous Epithelial Cell,Urine None Seen per lpf (None-Few); WBC,Urine 0-3 per hpf (0-3)
[2017-11-25 07:26] LABS: Thyroglobulin Antibody <0.9 IU/mL (0.0-4.0)
[2017-11-25] MEDS: cefTRIAXone 2,000 MG in Water for inj. (sterile) 20 ML 20 ML IVP SCH (08:37)
[2017-11-25] MEDS: Thyroid (Amour) 30 MG TABLET PO SCH (08:37)
[2017-11-25] MEDS: Insulin LISPRO 300 UNITS/3 ML VIAL SQ SCH ×3 (08:39→17:21)
[2017-11-25 11:43] VITALS: BP 106/61
--- NOTE | 2017-11-25 16:04 | Discharge Summary ---
Orders not resulted at time of discharge: Pending orders 11/21/17 09:24 Culture,Blood [BC] Routine Date of Encounter: 11/25/17 Time of Encounter: 15:53 - Discharge Diagnosis (1) UTI (urinary tract infection) Priority: Primary Status: Acute Qualifiers: Urinary tract infection type: acute cystitis Hematuria presence: without hematuria Qualified Code(s): N30.00 - Acute cystitis without hematuria (2) Radiculopathy of lumbar region Priority: Primary Status: Acute (3) Lower extremity weakness Priority: Primary Status: Acute Qualifiers: Laterality: bilateral Qualified Code(s): R29.898 - Other symptoms and signs involving the musculoskeletal system (4) PAF (paroxysmal atrial fibrillation) Priority: Secondary Status: Acute (5) Severe sepsis Priority: Primary Status: Resolved (6) Acute kidney failure Priority: Primary Status: Resolved Qualifiers: Acute renal failure type: unspecified Qualified Code(s): N17.9 - Acute kidney failure, unspecified (7) Type 2 diabetes mellitus Priority: Secondary Status: Chronic Qualifiers: Diabetes mellitus truck terminal manager insulin use: without jail use Diabetes mellitus complication status: without complication Qualified Code(s): E11.9 - Type 2 diabetes mellitus without complications (8) Thrombocytopenia Priority: Secondary Status: Chronic Hospital course: HOSPITAL COURSE: The patient is a 77-year-old male. He was admitted to the hospital shortly after developing, confusion. We found him to have urinary tract infection with sepsis and acute kidney injury. We offered him IV fluids and IV Rocephin. Blood cultures have been obtained. They are not growing any organisms. One can see that this patient has underlying type 2 diabetes mellitus; we treated it with diabetic diet and insulin Levemir/when necessary Humalog. He has also underlying chronic thrombocytopenia. We got this patient significantly better. We started talking about his discharge home, when he suddenly developed weakness in his lower extremities; he experienced a fall. Neurology consult has been obtained. The patient underwent MRI examination of lumbar spine. He does have severe right and moderate left neural foraminal narrowing at L5-S1 secondary to a disc bulge, posterior osteophyte formation and facet arthropathy. We offered him physical therapy. He is doing progressively better. He is able to walk with a walker/assistance from physical therapy. We decided to continue physical therapy at a intermediate facility. The patient had a short lasting episodes of atrial fibrillation during this hospitalization. It was treated with IV Cardizem. Currently, he is on Cardizem CD at 120 mg by mouth daily. He is not a candidate for chronic anticoagulation with Coumadin or similar medication due to his severe disease of lumbar spine. He is a high risk for falls. CONDITION AT DISCHARGE: The patient feels good. Denies chest pain and difficulty breathing. Denies back pain. He is able to ambulate with a walker/assistance from physical therapy. Skin: Free of rash and discoloration. Respiratory: Normal breath sounds with no crackles and wheezes bilaterally. CV: Heart is regular with no gallop or murmur. GI: Abdomen is flat and soft with no palpable mass or visceromegaly. Neuro exam: There is no focal deficits. SEE DISCHARGE ORDERS/MEDICATIONS.. Discharge discussed with: patient, social work - Time Spent with Patient Total time spent providing and/or coordinating discharge services: Greater than 30 minutes (40 minutes..) - Discharge Medications Prescriptions: Diltiazem CD (24hr) [Cardizem CD] 120 mg PO DAILY #30 cap.er.24h Metformin HCl [Metformin HCl ER] 1,000 mg PO BID #60 [id number] Home Medications: Glimepiride [Amaryl] 4 mg PO DAILY 11/20/17 [History] Insulin DETEMIR [Levemir Flextouch] 15 unit SQ DAILY 11/20/17 [History] Pravastatin Sodium [Pravachol] 20 mg PO DAILY 11/20/17 [History] Thyroid,Pork [Thyroid] 30 mg PO DAILY 11/20/17 [History] Acetaminophen [Tylenol] 650 mg PO Q6HR PRN tablet 11/25/17 [Rx] Diltiazem CD (24hr) [Cardizem CD] 120 mg PO DAILY #30 cap.er.24h 11/25/17 [Rx] Metformin HCl [Metformin HCl ER] 1,000 mg PO BID #60 [id number] 11/25/17 [Rx] Allergies/Adverse Reactions: 3 Allergy/AdvReac Type Severity Reaction Status Date / Time No Known Allergies Allergy Verified 11/20/17 21:48 Date of admission: 11/21/17 04:40 Primary care physician: PCP NONE Consults: 11/22/17 06:39 Consult to Neurology [CONS] Routine Consulting Provider: Neurology [facility] Reason for Consult: found down on ground; unknown etiology, elevated cpk; eval for siezure; also with lower extremity weakness Call Completed: No 11/22/17 06:44 Consult to Physical Therapy [CONS] Routine Comment: Evaluate, develop and implement POC Reason for Consult: weakness Does patient have active BEDREST order?: No Is patient medically & hemodynamically stable?: Yes OT [Consult to Occupational Therapy] [CONS] Routine Comment: Evaluate, develop and implement POC Reason for Consult: weakness Does patient have active BEDREST order?: No Is patient medically & hemodynamically stable?: Yes 11/22/17 15:43 Consult to Elementary [employer] Teacher [CONS] Routine Reason for SW Consult: needs ecf Discharging clinician: Jason Delacruz Anticipated date of discharge: 11/25/17 - Constitutional Vitals: Temp Pulse Resp BP Pulse Ox 97.6 F 72 18 106/61 99 11/25/17 11:42 11/25/17 11:42 11/25/17 11:42 11/25/17 11:42 11/25/17 11:42 General appearance: Present: cooperative, A&O X 3, pleasant, no acute distress, answers questions appropriately Exam: xx - Patient Status Disposition: Transfer SNF Condition: Fair Overall status at discharge: patient is progressing back to baseline - Discharge Instructions Follow Up With: NONE,PCP [Primary Care Provider] - Additional Instructions: FINGERSTICKS FOR GLUCOSE -- ROUTINE (FOR NON-INSULIN DEPENDENT T2DM).. - Diet and Activity Activity: ambulate only with your walker, as per physical therapy Diet: diabetic diet - VTE Reasons for not Prescribing Prophylaxis: Treatment not Indicated - Low risk for VTE Deep Vein Thrombosis/Pulmonary Embolism Present on Admission: No
--- NOTE | 2017-11-25 16:13 | Physician Discharge Referral ---
ExtendedCare Referral Info Transfer To: [facility] Provider in Charge: Irais Delacruz MD Institutional Level of Care: Skilled - Diagnosis (1) UTI (urinary tract infection) Priority: Primary Status: Acute (2) Radiculopathy of lumbar region Priority: Primary Status: Acute (3) Lower extremity weakness Priority: Primary Status: Acute (4) PAF (paroxysmal atrial fibrillation) Priority: Secondary Status: Chronic (5) Severe sepsis Priority: Primary Status: Resolved (6) Acute kidney failure Priority: Primary Status: Resolved (7) Type 2 diabetes mellitus Priority: Secondary Status: Chronic (8) Thrombocytopenia Priority: Secondary Status: Chronic Prognosis: Fair Aware of Diagnosis: Patient Aware of Prognosis: Patient - Transfer Medications Prescriptions: Diltiazem CD (24hr) [Cardizem CD] 120 mg PO DAILY #30 cap.er.24h Metformin HCl [Metformin HCl ER] 1,000 mg PO BID #60 [id number] Home Medications: Glimepiride [Amaryl] 4 mg PO DAILY 11/20/17 [History] Insulin DETEMIR [Levemir Flextouch] 15 unit SQ DAILY 11/20/17 [History] Pravastatin Sodium [Pravachol] 20 mg PO DAILY 11/20/17 [History] Thyroid,Pork [Thyroid] 30 mg PO DAILY 11/20/17 [History] Acetaminophen [Tylenol] 650 mg PO Q6HR PRN tablet 11/25/17 [Rx] Diltiazem CD (24hr) [Cardizem CD] 120 mg PO DAILY #30 cap.er.24h 11/25/17 [Rx] Metformin HCl [Metformin HCl ER] 1,000 mg PO BID #60 [id number] 11/25/17 [Rx] Allergies/Adverse Reactions: 3 Allergy/AdvReac Type Severity Reaction Status Date / Time No Known Allergies Allergy Verified 11/20/17 21:48 - Respiratory Orders None Smoking Cessation: Smoking cessation has been advised. For more information, call the [place] Tobacco Quit Line at 2-900-WEIZ-NOW. - Mobility Orders Ambulate (WITH A WALKER/ASSISTANCE..) - Rehabiliation Orders Rehab Potential: Fair Rehab Orders: Evaluation for Physical Therapy, Evaluation for Occupational Therapy - Diet Orders No Concentrated Sweets CERTIFICATION: I certify that the transfer of the above named patient to an Extended Care Facility is necessary for the continuing treatment of the diagnosis listed. The above information is true and accurate reflection of patient's current condition. Confidential - Redisclosure prohibited without a patient's written consent.
== END 2017-11-25 17:34 | DRG 871 ==
LOC: 2ANU → SUATTDRO 11-21 04:40
PROVIDERS: ADMIT Family Medicine; ATTEND Internal Medicine

== ENCOUNTER 2017-12-08 01:50 | Inpatient (IN) ==
--- NOTE | 2017-12-08 06:00 | Internal Med History&Physical ---
<Jordan Lorenzo - Last Filed: 12/08/17 08:15> Date of Encounter: 12/08/17 Time of Encounter: 05:58 Internal Medicine - H&P: HPI Chief complaint: Syncope History of present illness: xAel Banegas is a 77 year old male with a PMH of arthritis, DM, GERD, and thyroid disease who presented to [facility] on 12/08/17 for a syncopal episode. Patient is unable to remember the episode, and is unable to give corroborating details. jail night staff is unaware. Patient reports that he feels fine now. During orthostatics, patients blood pressure dropped, and he felt wobbly on his feet. Upon arrival, patients vital signs were as follows: Temperature 98.5, pulse 91, respiratory rate 22, blood pressure 106/72, O2 sat 100. Laboratory analysis was significant for an elevated white count of 11.2 with left shift, hemoglobin 4.8, creatinine 1.71. FOBT was positive. Stool was black. Previous hemoglobin was 10.7 only 10 days ago. EKG was unremarkable. 2 units packed red blood cells have been ordered. Patient seen and examined at bedside; he states that he is feeling well. He currently denies fever, chills, N/V/D, lightheadeness, numbness, tingling,fa tigue, or abdominal pain. No further complaints at this time. Past Med Surg Social Fam HX - Past Medical History Medical history: arthritis, atrial fibrillation, dementia, diabetes, GERD, hyperlipidemia, thyroid disease, syncope Additional medical history: UTI, syncopal episode 12/07/17 Psychiatric history: no psych history - Past Surgical History Surgical History: no surgical history - Social History Smoking Status: Never smoker Smokeless Tobacco Status: No Alcohol use: none Drug use: none - Family History Mother Living Status: Father Living Status: Internal Medicine - H&P: Meds Glimepiride [Amaryl] 4 mg PO DAILY 11/20/17 [History] Insulin DETEMIR [Levemir Flextouch] 15 unit SQ DAILY 11/20/17 [History] Pravastatin Sodium [Pravachol] 20 mg PO DAILY 11/20/17 [History] Thyroid,Pork [Thyroid] 30 mg PO DAILY 11/20/17 [History] Acetaminophen [Tylenol] 650 mg PO Q6HR PRN tablet 11/25/17 [Rx] Diltiazem CD (24hr) [Cardizem CD] 120 mg PO DAILY #30 cap.er.24h 11/25/17 [Rx] Metformin HCl [Metformin HCl ER] 1,000 mg PO BID #60 [id number] 11/25/17 [Rx] Allergy/AdvReac Type Severity Reaction Status Date / Time No Known Allergies Allergy Verified 11/20/17 21:48 All Systems PM: A 10-system review of systems was performed and is negative for pertinent findings except as documented above in the HPI. - Constitutional Constitutional: no chills, no fever(s), no night sweats - EENT Eyes: no change in vision, no discharge, no pain, no photophobia Ears: no ear discharge, no ear pain, no tinnitus Nose, mouth and throat: no dysphagia, no nasal discharge, no neck pain, no sore throat - Cardiovascular Cardiovascular ROS IM: no chest pain, no diaphoresis, no dyspnea, no lightheadedness, no palpitations, no syncope - Respiratory Respiratory: no cough, no dyspnea, no wheezing, no excessive phlegm production - Gastrointestinal Gastrointestinal: melena, no abdominal pain, no diarrhea, no hematemesis, no hematochezia, no nausea, no vomiting - Musculoskeletal Musculoskeletal ROS IM: no numbness, no tingling - Integumentary Integumentary IM: no rash, no unusual bruising - Neurological Neurological ROS: no confusion, no convulsions, no focal weakness, no numbness, no tingling, no tremor(s) - Hematologic/Lymphatic Hematologic/Lymphatic: no easy bruising - Constitutional Vitals: Temp Pulse Resp BP Pulse Ox 98.1 F 81 15 126/66 99 12/08/17 05:07 12/08/17 05:07 12/08/17 05:07 12/08/17 05:07 12/08/17 05:07 Exam: General: No acute distress Head: atraumatic, normocephalic Eye exam: PERRL, EOMI ENT exam: normal oropharynx, mucous membranes dry Neck exam: Supple, trachea midline Cardiovascular: RRR, no murmurs, rubs, or gallops Respiratory exam: CTAB; no wheezes, rales, rhonchi Abdomen: Soft, nontender Extremities: No clubbing or cyanosis Neurological: Present: alert, oriented X3 Psychiatric: Present: normal affect, normal mood Skin: Present: warm, dry Internal Med - H&P Results - Labs CBC & Chem 7: 12/08/17 06:25 12/08/17 06:25 - Assessment and plan (1) GI bleed Current Visit: No Status: Acute Assessment and plan: Patient presented after syncopal episode - Laboratory analysis demonstrated a hemoglobin of 4.8 - Stools were tarry black - FOBT was positive - Patient is status post 2 units transfusion packed red blood cells Plan: - Will keep patient nothing by mouth - Consult GI - Protonix 40 IV BID Qualifiers: Qualified Code(s): K92.2 - Gastrointestinal hemorrhage, unspecified (2) Anemia Current Visit: No Status: Acute Assessment and plan: Likely secondary to GI bleed - Type and screen; Transfuse as necessary - Plan as above Qualifiers: Qualified Code(s): D64.9 - Anemia, unspecified (3) Chronic kidney disease Current Visit: Yes Status: Acute Assessment and plan: - Patient has an elevated creatinine at 1.71; appears to be at baseline Qualifiers: Qualified Code(s): N18.9 - Chronic kidney disease, unspecified - Time Spent With Patient Total time spent is greater than 50% in coordination of care (as documented) at patient's floor/unit and/or counseling patient: 25 - 35 minutes <Dylan Ragsdale - Last Filed: 12/08/17 08:50> Internal Medicine - H&P: HPI History of present illness: Mr. Banegas is a 77 year old male All Systems PM: A 10-system review of systems was performed and is negative for pertinent findings except as documented above in the HPI. - Constitutional Vitals: Temp Pulse Resp BP Pulse Ox 97.5 F L 81 10 107/56 100 12/08/17 08:00 12/08/17 07:52 12/08/17 07:00 12/08/17 07:00 12/08/17 07:00 Internal Med - H&P Results - Labs CBC & Chem 7: 12/08/17 06:25 12/08/17 06:25 Labs: Short CBC 12/08/17 Range/Units 06:25 WBC 7.6 (4.3-11.1) K/mcL Hgb 7.1 L D (12.9-16.9) g/dL Hct 21.5 L (37.5-50.1) % Plt Count 243 (140-400) K/mcL Neutrophils # 5.8 (1.6-8.9) K/mcL BMP 12/08/17 06:25 Sodium 137 Potassium 4.3 Chloride 109 H Carbon Dioxide 22 L BUN 47 H Creatinine 1.47 H Glucose 194 H Calcium 8.5 L Cardiac Enzymes 12/08/17 Range/Units 06:25 Troponin I < 0.03 (< 0.04) ng/mL Liver Function 12/08/17 Range/Units 06:25 Total Bilirubin 0.2 L (0.3-1.0) mg/dL AST 8 L (13-39) Units/L ALT 10 (7-52) Units/L Alkaline Phosphatase 52 (34-104) Units/L Albumin 3.1 L (3.5-5.7) g/dL - Time Spent With Patient Total time spent is greater than 50% in coordination of care (as documented) at patient's floor/unit and/or counseling patient: - Attending Attestation Patient seen and examined. Chart reviewed. Case discussed with resident. Agree with assessment and plan. Patient presenting with syncopal episode and a 2 day history of weakness in the setting of what appears to be upper GI bleed with a hemoglobin of 4.8 and elevated BUN and reports of dark stools. No reports of hematemesis. Patient currently hemodynamically stable after receiving 2 units of packed red blood cells with a rise in hemoglobin from 4.8- 7.1. We will give 1 additional unit. Continue with IV Protonix. Patient will be kept nothing by mouth. GI consult in the morning.
[2017-12-08] MEDS ORDERED: Naloxone 0.4 MG/ML INJ IVP PRN (06:01)
[2017-12-08] MEDS ORDERED: 0.9 % Sodium Chloride 1,000 ML IVC SCH (06:15)
[2017-12-08] MEDS: Pantoprazole 40 MG VIAL IVP SCH ×2 (06:33→18:00)
[2017-12-08 06:34] LABS: Basophils # 0.1 K/mcL (0.0-0.2); Basophils % 1.1 %; Eosinophils % 0.5 %; Hematocrit 21.5 % (37.5-50.1); Hemoglobin 7.1 g/dL (12.9-16.9); Immature Granulocytes % 2.2 % (0-4); Mean Corpuscular Hemoglobin 28.5 pg (28.0-33.3); Mean Corpuscular Volume 86.3 fL (83.0-100.0); Mean Platelet Volume 8.7 fL (9.4-12.4); Monocytes # 0.5 K/mcL (0.0-1.3); Monocytes % 6.7 %; Neutrophils # 5.8 K/mcL (1.6-8.9); Nucleated Red Blood Cells 0.3 /100 WBC (0); Platelet Count 243 K/mcL (140-400); Red Blood Count 2.49 M/mcL (4.19-5.50); Red Cell Distribution Width 14.2 % (11.5-14.5); Segmented Neutrophils % 76.5 %
[2017-12-08 06:42] LABS: INR 1.2; Prothrombin Time 13.5 Seconds (9.4-12.1)
[2017-12-08 06:56] LABS: Troponin I < 0.03 ng/mL (< 0.04)
[2017-12-08 06:57] LABS: Alanine Aminotransferase 10 Units/L (7-52); Albumin 3.1 g/dL (3.5-5.7); Albumin/Globulin Ratio 1.4 (1.1-2.2); Alkaline Phosphatase 52 Units/L (34-104); Aspartate Amino Transferase 8 Units/L (13-39); BUN/Creatinine Ratio 32 (6-26); Bilirubin,Total 0.2 mg/dL (0.3-1.0); Blood Urea Nitrogen 47 mg/dL (8-23); Calcium 8.5 mg/dL (8.6-10.3); Carbon Dioxide 22 mEq/L (23-29); Chloride 109 mEq/L (98-107); Globulin 2.2 g/dL (2.4-3.5); Glucose 194 mg/dL (70-105); Osmolality,Calculated 302 (280-300); Potassium 4.3 mEq/L (3.5-5.1); Sodium 137 mEq/L (136-145); Total Protein 5.3 g/dL (6.4-8.9); eGFR For Non-African Americans 46 (> 60)
--- NOTE | 2017-12-08 09:57 | Gastroenterology Consult Note ---
<TkShane lozano - Last Filed: 12/08/17 10:22> Date of Encounter: 12/08/17 Time of Encounter: 09:54 - Assessment and plan (1) Anemia Current Visit: Yes Status: Acute Assessment and plan: Secondary to acute blood loss, likely due to upper GI bleed. Symptomatic with weakness and syncope. Patient reports melena. Hemoglobin 4.8 on presentation, received 2 units of packed red blood cells, is up to 7.1 this morning, patient has 2 more units of packed red blood cells pending. Baseline hemoglobin appears to be around 11. Discussed with patient, we will proceed with EGD later today. We will keep patient nothing by mouth. Continue Protonix 40 mg IV twice a day. Qualifiers: Anemia type: other cause Other causes of anemia: acute posthemorrhagic Qualified Code(s): D62 - Acute posthemorrhagic anemia (2) GI bleed Current Visit: Yes Status: Acute Assessment and plan: Likely cause of patient's anemia as above. Plan for EGD today. Qualifiers: GI bleed type/associated pathology: unspecified gastrointestinal hemorrhage type Qualified Code(s): K92.2 - Gastrointestinal hemorrhage, unspecified (3) PAF (paroxysmal atrial fibrillation) Current Visit: No Status: Acute Assessment and plan: Currently rate controlled. Had received IV heparin during last admission but anticoagulation was not continued. Currently not on any anticoagulation. - Time Spent With Patient Total time spent is greater than 50% in coordination of care (as documented) at patient's floor/unit and/or counseling patient: GI History of Present Illness - Data of Consult Patient: new to practice Consult date: 12/08/17 Requesting Physician: Marky Yeung MD - Consult Narrative Reason for consult: Anemia, melena History of present illness: Mr. Banegas is a 77 year old male with history of hypothyroidism, type 2 diabetes, atrial fibrillation not on anticoagulation who presents with weakness, syncope, melena. Patient states that over the last week he has been feeling progressively weak and has had trouble getting out of bed. He states he has not had anything like this before. He reports prior to arrival he had an episode where he stood up and passed out. He denies hitting his head. He reports at the long-term they have told him over the last 4 days he has had black stools. He reports his bowel movements have become more frequent. Patient reports being diagnosed with an abnormal heart rhythm on his last admission approximately 3 weeks ago. He reports he was given anticoagulation while in the hospital but this has not been continued as an outpatient. He denies aspirin or NSAID use. He denies any abdominal pain, nausea, vomiting, diarrhea, hematemesis, hematochezia. Colonoscopy: Unknown EGD: Unknown Past Med Surg Social Fam HX - Past Medical History Medical history: arthritis, atrial fibrillation, dementia, diabetes, GERD, hyperlipidemia, thyroid disease, syncope Additional medical history: UTI, syncopal episode 12/07/17 Psychiatric history: no psych history - Past Surgical History Surgical History: no surgical history - Social History Smoking Status: Never smoker Smokeless Tobacco Status: No Alcohol use: none Drug use: none - Family History Father Living Status: Mother Living Status: All systems PM: reviewed and no additional remarkable complaints except as stated - Constitutional Vitals: Temp Pulse Resp BP Pulse Ox 97.5 F L 81 10 107/56 100 12/08/17 08:00 12/08/17 07:52 12/08/17 07:00 12/08/17 07:00 12/08/17 07:00 General appearance: Present: A&O X 3, pleasant, no acute distress, answers questions appropriately - Head Head exam: Present: atraumatic, normal inspection, normocephalic - ENT ENT exam: Present: mucous membranes moist - Respiratory Respiratory exam: Present: CTAB. Absent: rales, rhonchi, wheezes - GI/Abdominal GI/Abdominal exam: Present: normal bowel sounds, soft. Absent: distended, tenderness - Neurological Exam Neurological exam: Present: alert, CN II-XII intact, oriented X3, no focal deficits Results - Labs CBC & Chem 7: 12/08/17 06:25 12/08/17 06:25 Labs: Last Result Calcium 8.5 mg/dL (8.6-10.3) L 12/08/17 06:25 Troponin I < 0.03 ng/mL (< 0.04) 12/08/17 06:25 Entire Visit Hgb 7.1 g/dL (12.9-16.9) L D 12/08/17 06:25 Hct 21.5 % (37.5-50.1) L 12/08/17 06:25 PT 13.5 Seconds (9.4-12.1) H 12/08/17 06:25 Total Bilirubin 0.2 mg/dL (0.3-1.0) L 12/08/17 06:25 AST 8 Units/L (13-39) L 12/08/17 06:25 ALT 10 Units/L (7-52) 12/08/17 06:25 - ABG ABG results: PT/INR, D-dimer PT 13.5 Seconds (9.4-12.1) H 12/08/17 06:25 Consult Discharge Plan - Plan Referrals: Brandt Cisneros MD [Primary Care Provider] - <Mariano Floyd - Last Filed: 12/10/17 09:57> - Time Spent With Patient Total time spent is greater than 50% in coordination of care (as documented) at patient's floor/unit and/or counseling patient: GI History of Present Illness - Data of Consult Requesting Physician: Marky Yeung MD - Consult Narrative History of present illness: Mr. Banegas is a 77 year old male - Constitutional Vitals: Temp Pulse Resp BP Pulse Ox 98.5 F 68 16 102/57 97 12/10/17 07:15 12/10/17 07:15 12/10/17 07:15 12/10/17 07:15 12/10/17 07:15 Results - Labs CBC & Chem 7: 12/10/17 05:17 12/10/17 05:17 Labs: Last Result Calcium 8.4 mg/dL (8.6-10.3) L 12/10/17 05:17 Troponin I < 0.03 ng/mL (< 0.04) 12/08/17 06:25 Entire Visit Hgb 7.7 g/dL (12.9-16.9) L 12/10/17 05:17 Hct 23.3 % (37.5-50.1) L 12/10/17 05:17 PT 13.5 Seconds (9.4-12.1) H 12/08/17 06:25 Total Bilirubin 0.2 mg/dL (0.3-1.0) L 12/08/17 06:25 AST 8 Units/L (13-39) L 12/08/17 06:25 ALT 10 Units/L (7-52) 12/08/17 06:25 - ABG ABG results: PT/INR, D-dimer PT 13.5 Seconds (9.4-12.1) H 12/08/17 06:25 - Attending Attestation Severe anemia in a setting of melena. Plan endoscopy. Transfuse total of 4 units of packed cells. I examined this patient and my medical decision-making was reviewed with the Resident Physician. I agree with the documented findings, disposition and treatment plan as described except to the extent set forth below.
[2017-12-08] MEDS ORDERED: 0.9 % Sodium Chloride 500 ML ONE (10:51)
--- NOTE | 2017-12-08 11:46 | Event Note ---
Date of Encounter: 12/08/17 Time of Encounter: 10:10 H&P reviewed. Patient with history of diabetes, paroxysmal A. fib, hypothyroidism, presented to the ED after an episode of syncope and was found to have severe anemia all 4.8. Previously at 10.7 on 11/26. Reports black tarry stool as well as FOBT testing positive. Physical exam is unremarkable with stable vital signs and benign abdominal exam. Hemoglobin appropriately carissa to 7.1 after 2 units of PRBC. We will transfuse 2 additional units of PRBC and follow with GI for possible EGD. Nothing by mouth, PPI twice a day. Upon reviewing the prior documentation during the recent hospitalization, it appears that he was briefly on anticoagulation for Afib (chadvasc 3) but was later discontinued due to him being high risk of fall. Along wit this episode of GI bleed, he will probably not be a good candidate for AC as an outpatient.
[2017-12-08] MEDS ORDERED: *HR* Dextrose 50 % in Water (Syg) 50 ML SYRINGE IVP PRN (11:47)
[2017-12-08] MEDS ORDERED: D5% in Water 1,000 ML IVC PRN (11:47)
[2017-12-08] MEDS ORDERED: Dextrose Gel 15 GM/37.5 ML TUBE PO PRN ×2 (11:47)
[2017-12-08] MEDS: Insulin LISPRO 300 UNITS/3 ML VIAL SQ SCH ×2 (11:59→19:22)
[2017-12-08] MEDS ORDERED: *HR* Propofol 200 MG/20 ML VIAL IVP ONE (12:39)
[2017-12-08] MEDS ORDERED: Lidocaine -MPF 2% 2 ML VIAL ONE (12:39)
[2017-12-08] MEDS ORDERED: Propofol 500 MG/50 ML INFUS..BTL ONE (12:39)
--- NOTE | 2017-12-08 13:46 | Anesthesia Evaluation PreOp ---
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: Other (syncopal event due to severe anemia) Other Medical History: Diabetes Type II Anesthesia History: No Prior Anesthetic Complications Alcohol Use: none Drug use: none Medications and Allergies Glimepiride [Amaryl] 4 mg PO DAILY 11/20/17 [History] Insulin DETEMIR [Levemir Flextouch] 15 unit SQ DAILY 11/20/17 [History] Pravastatin Sodium [Pravachol] 20 mg PO DAILY 11/20/17 [History] Thyroid,Pork [Thyroid] 30 mg PO DAILY 11/20/17 [History] Acetaminophen [Tylenol] 650 mg PO Q6HR PRN tablet 11/25/17 [Rx] Diltiazem CD (24hr) [Cardizem CD] 120 mg PO DAILY #30 cap.er.24h 11/25/17 [Rx] Metformin HCl [Metformin HCl ER] 1,000 mg PO BID #60 [id number] 11/25/17 [Rx] Allergy/AdvReac Type Severity Reaction Status Date / Time No Known Allergies Allergy Verified 11/20/17 21:48 - Meds/Allergy Pre-op Review Medications Reviewed: Yes Allergies Reviewed: Yes Beta Blockers on Current Med List: No Anesthesia Results - Labs 12/08/17 06:25 12/08/17 06:25 - Imaging EKG: report reviewed, image reviewed ( Impressions: LVEF 60-65%. Normal LV chamber size and function. Mild concentric left ventricular hypertrophy. Mild left ventricular diastolic dysfunction. Normal right ventricular structure and function. No evidence of pulmonary hypertension.) Anesthesia Exam Last Vital Signs Temp 98.3 F 12/08/17 13:45 Pulse 73 12/08/17 13:45 Resp 18 12/08/17 13:45 BP 112/52 12/08/17 13:45 Pulse Ox 100 12/08/17 13:00 Weight: 52 kg NPO (# of Hours): > 8 hrs - HEENT Pupil (Motor): Pupils equal, EOMI Mallampati: II Teeth: Missing, Poor dentition Oral Opening: Greater than 3 - VEHICLE MONITOR TECHNICIAN LOC: Oriented - Cardiac Rhythm: Regular Murmur: None - Pulmonary Breath Sounds: bilateral Clear Respiratory Effort: Symmetrical Anesthesia Assess/Plan ASA Score: 3 Modified [place] Scale for Level of Consciousness: Cooperative, oriented, and tranquil Anesthetic Plan: MAC Monitoring Plan: Standard Monitors Recovery Plan: PACU
[2017-12-08 17:11] LABS: Hematocrit 26.6 % (37.5-50.1)
[2017-12-08 17:15] LABS: Hemoglobin 8.7 g/dL (12.9-16.9)
[2017-12-08] MEDS ORDERED: Pantoprazole 40 MG VIAL IVP SCH (18:00)
[2017-12-08 21:06] LABS: Hemoglobin 8.1 g/dL (12.9-16.9)
[2017-12-08] MEDS: Insulin DETEMIR 100 UNIT/ML X5UNITS SQ SCH (21:47)
[2017-12-09] MEDS ORDERED: Dextrose Gel 15 GM/37.5 ML TUBE PO PRN ×2 (00:57)
[2017-12-09] MEDS ORDERED: *HR* Dextrose 50 % in Water (Syg) 50 ML SYRINGE IVP PRN (00:57)
[2017-12-09] MEDS ORDERED: D5% in Water 1,000 ML IVC PRN (00:57)
[2017-12-09] MEDS: Insulin LISPRO 300 UNITS/3 ML VIAL SQ SCH ×4 (02:57→17:47)
[2017-12-09] MEDS: Pantoprazole 40 MG VIAL IVP SCH (05:05)
[2017-12-09 05:19] LABS: Hematocrit 23.9 % (37.5-50.1); Hemoglobin 7.8 g/dL (12.9-16.9); Mean Corpuscular HGB Conc 32.6 g/dL (31.6-35.5); Mean Corpuscular Hemoglobin 28.3 pg (28.0-33.3); Mean Corpuscular Volume 86.6 fL (83.0-100.0); Mean Platelet Volume 9.2 fL (9.4-12.4); Platelet Count 185 K/mcL (140-400); Red Blood Count 2.76 M/mcL (4.19-5.50); Red Cell Distribution Width 15.1 % (11.5-14.5)
[2017-12-09 05:29] LABS: Calcium 8.2 mg/dL (8.6-10.3); Potassium 3.8 mEq/L (3.5-5.1)
[2017-12-09] MEDS ORDERED: Insulin LISPRO 300 UNITS/3 ML VIAL SQ SCH ×7 (07:30→21:00)
--- NOTE | 2017-12-09 10:53 | Gastroenterology Progress Note ---
<OpalShane alves - Last Filed: 12/09/17 15:31> Date of Encounter: 12/09/17 Time of Encounter: 10:06 - Assessment and plan (1) Anemia Current Visit: Yes Status: Inactive Assessment and plan: Secondary to acute blood loss, due to upper GI bleed. Symptomatic with weakness and syncope. Patient reports melena. Hemoglobin 4.8 on presentation, received 2 units of packed red blood cells, is up to 7.1 this morning, patient had 2 more units of packed red blood cells yesterday, hgb 7.8 today. Status post yesterday that revealed duodenal ulceration. Can transition to oral PPI, continue Carafate. Would recommend iron replacement Qualifiers: Anemia type: other cause Other causes of anemia: acute posthemorrhagic Qualified Code(s): D62 - Acute posthemorrhagic anemia (2) GI bleed Current Visit: Yes Status: Inactive Assessment and plan: Likely cause of patient's anemia as above. Qualifiers: GI bleed type/associated pathology: unspecified gastrointestinal hemorrhage type Qualified Code(s): K92.2 - Gastrointestinal hemorrhage, unspecified (3) PAF (paroxysmal atrial fibrillation) Current Visit: No Status: Acute Assessment and plan: Currently rate controlled. Had received IV heparin during last admission but anticoagulation was not continued. Currently not on any anticoagulation. - Time Spent With Patient Total time spent is greater than 50% in coordination of care (as documented) at patient's floor/unit and/or counseling patient: - Subjective Interval history: Recently and examined at bedside. Patient states he feels pretty good today. Tolerating diet well. Denies abdominal pain, nausea, vomiting, diarrhea, change in bowel habits. - Constitutional Vitals: Temp Pulse Resp BP Pulse Ox 98.6 F 84 16 138/71 100 12/09/17 10:00 12/09/17 10:00 12/09/17 10:00 12/09/17 10:00 12/09/17 10:00 General appearance: Present: A&O X 3, pleasant, no acute distress, answers questions appropriately - Respiratory Respiratory exam: Present: CTAB. Absent: rales, rhonchi, wheezes - GI/Abdominal GI/Abdominal exam: Present: normal bowel sounds, soft. Absent: distended, tenderness Results - Labs CBC & Chem 7: 12/09/17 04:17 12/09/17 04:17 Labs: Last Result Calcium 8.2 mg/dL (8.6-10.3) L 12/09/17 04:17 Troponin I < 0.03 ng/mL (< 0.04) 12/08/17 06:25 Entire Visit Hgb 7.8 g/dL (12.9-16.9) L 12/09/17 04:17 Hct 23.9 % (37.5-50.1) L 12/09/17 04:17 PT 13.5 Seconds (9.4-12.1) H 12/08/17 06:25 Total Bilirubin 0.2 mg/dL (0.3-1.0) L 12/08/17 06:25 AST 8 Units/L (13-39) L 12/08/17 06:25 ALT 10 Units/L (7-52) 12/08/17 06:25 - ABG ABG results: PT/INR, D-dimer PT 13.5 Seconds (9.4-12.1) H 12/08/17 06:25 Consult Discharge Plan - Plan Referrals: Brandt Cisneros MD [Primary Care Provider] - <Mariano Floyd - Last Filed: 12/10/17 09:42> - Time Spent With Patient Total time spent is greater than 50% in coordination of care (as documented) at patient's floor/unit and/or counseling patient: - Constitutional Vitals: Temp Pulse Resp BP Pulse Ox 98.5 F 68 16 102/57 97 12/10/17 07:15 12/10/17 07:15 12/10/17 07:15 12/10/17 07:15 12/10/17 07:15 Results - Labs CBC & Chem 7: 12/10/17 05:17 12/10/17 05:17 Labs: Last Result Calcium 8.4 mg/dL (8.6-10.3) L 12/10/17 05:17 Troponin I < 0.03 ng/mL (< 0.04) 12/08/17 06:25 Entire Visit Hgb 7.7 g/dL (12.9-16.9) L 12/10/17 05:17 Hct 23.3 % (37.5-50.1) L 12/10/17 05:17 PT 13.5 Seconds (9.4-12.1) H 12/08/17 06:25 Total Bilirubin 0.2 mg/dL (0.3-1.0) L 12/08/17 06:25 AST 8 Units/L (13-39) L 12/08/17 06:25 ALT 10 Units/L (7-52) 12/08/17 06:25 - ABG ABG results: PT/INR, D-dimer PT 13.5 Seconds (9.4-12.1) H 12/08/17 06:25 - Attending Attestation Agree with above. Will follow up as outpatient. I examined this patient and my medical decision-making was reviewed with the Resident Physician. I agree with the documented findings, disposition and treatment plan as described except to the extent set forth below.
--- NOTE | 2017-12-09 10:58 | Internal Med Progress Note ---
Hospitalist Progress Note - Encounter Date of Encounter: 12/09/17 Time of Encounter: 10:05 - Subjective Interval History: No new complaints. Did not have any bowel movements after EGD yet. No chest pain, SOB, lightheadedness, nausea/vomiting, or hematemesis. - Exam Vitals: Temp Pulse Resp BP Pulse Ox 98.6 F 84 16 138/71 100 12/09/17 10:00 12/09/17 10:00 12/09/17 10:00 12/09/17 10:00 12/09/17 10:00 Exam: General: No acute distress Cardiovascular: RRR, no murmurs Respiratory exam: Clear to auscultation Abdomen: Soft, nontender. No rebound/guarding/rigidity Neurological: No focal deficits - Assessment and Plan (1) Anemia Current Visit: Yes Status: Acute Assessment and Plan: Presented with syncopal episode and found to have anemia of 4.8 Upon reviewing the previous admission notes earlier this month, it appears that he was newly diagnosed with Afib and was briefly placed on anticoagulation which was later d/ramin due to his high risk of fall s/p 4U pRBC, Hb 7.8 today EGD yesterday reportedly showed duodenal ulcer without active bleeding. May have bled from the ulcer while he was receiving anticoagulation during the last admission switch PPI to PO, carafate added by GI start iron supplement If Hb remains stable through tomorrow, will be discharged (2) Duodenal ulcer Current Visit: Yes Status: Acute Assessment and Plan: as above (3) Afib Current Visit: Yes Status: Chronic Assessment and Plan: CHADVASC 3 and was briefly on anticoagulation during the last admission -> d/ramin in view of high risk of fall in view of the current admission for GIB requiring 4U pRBC, holding off on anticoagulation indefinitely would be a reasonable decision To be followed up outpatient (4) Chronic kidney disease Current Visit: No Status: Chronic Assessment and Plan: stable avoid nephrotoxins (5) DVT prophylaxis Current Visit: No Status: Acute Assessment and Plan: SCD - Time Spent with Patient Total time spent is greater than 50% in coordination of care (as documented) at patient's floor/unit and/or counseling patient: Plan of Care Discussed with: patient Internal Medicine: Result - Labs CBC & Chem 7: 12/09/17 04:17 12/09/17 04:17 Labs: Short CBC 12/08/17 12/08/17 12/09/17 Range/Units 16:59 20:55 04:17 WBC 7.7 (4.3-11.1) K/mcL Hgb 8.7 L D 8.1 L 7.8 L (12.9-16.9) g/dL Hct 26.6 L 24.0 L 23.9 L (37.5-50.1) % Plt Count 185 (140-400) K/mcL BMP 12/09/17 04:17 Sodium 140 Potassium 3.8 Chloride 111 H Carbon Dioxide 21 L BUN 37 H Creatinine 1.42 H Glucose 71 Calcium 8.2 L - ABG Interpretation ABG results: PT/INR, D-dimer PT 13.5 Seconds (9.4-12.1) H 12/08/17 06:25 Consult Discharge Plan - Plan Referrals: Brandt Cisneros MD [Primary Care Provider] - (1) Anemia Qualifiers: Anemia type: unspecified type Qualified Code(s): D64.9 - Anemia, unspecified (3) Afib Qualifiers: Atrial fibrillation type: paroxysmal Qualified Code(s): I48.0 - Paroxysmal atrial fibrillation (4) Chronic kidney disease Qualifiers: Chronic kidney disease stage: stage 3 (moderate) Qualified Code(s): N18.3 - Chronic kidney disease, stage 3 (moderate)
[2017-12-09] MEDS: Insulin DETEMIR 100 UNIT/ML X5UNITS SQ SCH (20:55)
[2017-12-10 05:50] LABS: Hematocrit 23.3 % (37.5-50.1); Hemoglobin 7.7 g/dL (12.9-16.9)
[2017-12-10 05:58] LABS: Calcium 8.4 mg/dL (8.6-10.3); Potassium 3.7 mEq/L (3.5-5.1)
[2017-12-10] MEDS ORDERED: Thyroid (Amour) 30 MG TABLET PO SCH (06:30)
[2017-12-10] MEDS: Insulin LISPRO 300 UNITS/3 ML VIAL SQ SCH ×2 (07:27→13:17)
[2017-12-10 09:57] VITALS: BP 133/71
--- NOTE | 2017-12-10 10:42 | Discharge Summary ---
- NOTES TO OUTPATIENT PROVIDER Notes to Outpatient Provider: Patient was admitted for syncope and was found to have severe anemia of 4.8. Receive 4 units of PRBC transfusion and hemoglobin was stable at 7.7. EGD done on 12/08 showed non-bleeding duodenal ulcer which did not require any endoscopic intervention. Suspect that he had bled from the ulcer at the time when he briefly received anticoagulation during the previous admission in early November. He was started on PPI, carafate, iron supplements, and will follow up with GI in 4 weeks with repeat EGD to document healing. Date of Encounter: 12/10/17 Time of Encounter: 08:30 - Discharge Diagnosis (1) PAF (paroxysmal atrial fibrillation) Priority: Secondary Status: Acute (2) Anemia Priority: Primary Status: Inactive Qualifiers: Anemia type: other cause Other causes of anemia: acute posthemorrhagic Qualified Code(s): D62 - Acute posthemorrhagic anemia (3) GI bleed Priority: Secondary Status: Inactive Qualifiers: GI bleed type/associated pathology: unspecified gastrointestinal hemorrhage type Qualified Code(s): K92.2 - Gastrointestinal hemorrhage, unspecified Hospital course: Mr. Banegas is a 77 year old male with PMHx of DM, CKD, hypothyroidism, pAF, was admitted for syncope and was found to have severe anemia of 4.8. Receive 4 units of PRBC transfusion and hemoglobin was stable at 7.7. EGD done on 12/08 showed non-bleeding duodenal ulcer which did not require any endoscopic intervention. Suspect that he had bled from the ulcer at the time when he briefly received anticoagulation during the previous admission in early November. He was started on PPI, carafate, iron supplements, and will follow up with GI in 4 weeks with repeat EGD to document healing. Discharge discussed with: patient, nurse - Time Spent with Patient Total time spent providing and/or coordinating discharge services: 31 mins - Discharge Medications Prescriptions: Ferrous Sulfate 325 mg PO DAILY@0800 #30 tablet Omeprazole [PriLOSEC] 40 mg PO DAILY@0630 #60 capsule. Sucralfate [Carafate] 1 gm PO QIDAC #120 udc Home Medications: Glimepiride [Amaryl] 4 mg PO DAILY 11/20/17 [History] Insulin DETEMIR [Levemir Flextouch] 15 unit SQ DAILY 11/20/17 [History] Pravastatin Sodium [Pravachol] 20 mg PO DAILY 11/20/17 [History] Thyroid,Pork [Thyroid] 30 mg PO DAILY 11/20/17 [History] Acetaminophen [Tylenol] 650 mg PO Q6HR PRN tablet 11/25/17 [Rx] Diltiazem CD (24hr) [Cardizem CD] 120 mg PO DAILY #30 cap.er.24h 11/25/17 [Rx] Metformin HCl [Metformin HCl ER] 1,000 mg PO BID #60 [id number] 11/25/17 [Rx] Ferrous Sulfate 325 mg PO DAILY@0800 #30 tablet 12/10/17 [Rx] Omeprazole [PriLOSEC] 40 mg PO DAILY@0630 #60 capsule.dr 12/10/17 [Rx] Sucralfate [Carafate] 1 gm PO QIDAC #120 udc 12/10/17 [Rx] Allergies/Adverse Reactions: Allergy/AdvReac Type Severity Reaction Status Date / Time No Known Allergies Allergy Verified 11/20/17 21:48 Date of admission: 12/08/17 08:45 Primary care physician: Brandt Cisneros MD Consults: 12/08/17 05:35 Consult to Real Time Trader [CONS] Routine Reason for SW Consult: Patient from [facility]. 12/08/17 06:11 Consult to Gastroenterology [CONS] Routine Consulting Provider: Gastroenterology Kaley Reason for Consult: GI Bleed. Possibly upper Call Completed: No - Constitutional Vitals: Temp Pulse Resp BP Pulse Ox 98.2 F 75 16 133/71 98 12/10/17 09:56 12/10/17 09:56 12/10/17 09:56 12/10/17 09:56 12/10/17 09:56 Exam: General: No acute distress Cardiovascular: RRR, no murmurs Respiratory exam: Clear to auscultation Abdomen: Soft, nontender. No rebound/guarding/rigidity Neurological: No focal deficits - Patient Status Disposition: Transfer SNF Condition: Good Overall status at discharge: patient is progressing back to baseline - Discharge Instructions Instructions: Anemia (GEN), Atrial Fibrillation (DC), Syncope (DC), Diabetes Mellitus Type 2 in Adults (DC) Follow Up With: Brandt Cisneros MD [Primary Care Provider] - Mariano Floyd MD [Partnered Physician] - - Diet and Activity Activity: resume usual activities as tolerated Diet: advance to your usual diet
--- NOTE | 2017-12-10 10:48 | Physician Discharge Referral ---
[facility] Referral Info Institutional Level of Care: Skilled - Diagnosis (1) PAF (paroxysmal atrial fibrillation) Priority: Secondary Status: Acute (2) Anemia Priority: Primary Status: Inactive (3) GI bleed Priority: Secondary Status: Inactive Prognosis: Good - Transfer Medications Prescriptions: Ferrous Sulfate 325 mg PO DAILY@0800 #30 tablet Omeprazole [PriLOSEC] 40 mg PO DAILY@0630 #60 capsule. Sucralfate [Carafate] 1 gm PO QIDAC #120 udc Home Medications: Glimepiride [Amaryl] 4 mg PO DAILY 11/20/17 [History] Insulin DETEMIR [Levemir Flextouch] 15 unit SQ DAILY 11/20/17 [History] Pravastatin Sodium [Pravachol] 20 mg PO DAILY 11/20/17 [History] Thyroid,Pork [Thyroid] 30 mg PO DAILY 11/20/17 [History] Acetaminophen [Tylenol] 650 mg PO Q6HR PRN tablet 11/25/17 [Rx] Diltiazem CD (24hr) [Cardizem CD] 120 mg PO DAILY #30 cap.er.24h 11/25/17 [Rx] Metformin HCl [Metformin HCl ER] 1,000 mg PO BID #60 [id number] 11/25/17 [Rx] Ferrous Sulfate 325 mg PO DAILY@0800 #30 tablet 12/10/17 [Rx] Omeprazole [PriLOSEC] 40 mg PO DAILY@0630 #60 capsule. 12/10/17 [Rx] Sucralfate [Carafate] 1 gm PO QIDAC #120 udc 12/10/17 [Rx] Allergies/Adverse Reactions: Allergy/AdvReac Type Severity Reaction Status Date / Time No Known Allergies Allergy Verified 11/20/17 21:48 - Respiratory Orders Smoking Cessation: Smoking cessation has been advised. For more information, call the [place] Tobacco Quit Line at 7-069-GRAW-NOW. - Rehabiliation Orders Rehab Orders: Evaluation for Physical Therapy, Evaluation for Occupational Therapy CERTIFICATION: I certify that the transfer of the above named patient to an Extended Care Facility is necessary for the continuing treatment of the diagnosis listed. The above information is true and accurate reflection of patient's current condition. Confidential - Redisclosure prohibited without a patient's written consent.
[2017-12-10] MEDS ORDERED: *HR* Propofol 200 MG/20 ML VIAL IVP ONE (13:42)
[2017-12-10] MEDS ORDERED: Lidocaine 2% Syringe 100 MG/5 ML IV ONE (13:42)
[2017-12-10] MEDS ORDERED: *HR* Propofol 500 MG/50 ML BOTTLE IVC ONE (13:42)
== END 2017-12-10 13:43 | DRG 811 ==
LOC: ICNU → SUATTDRO 08:45 → 3ANU 17:23
PROVIDERS: ADMIT Internal Medicine; ATTEND Internal Medicine